=== PATIENT | male | born 1980 | race Caucasian/White ===

== ENCOUNTER 2018-04-12 20:36 | Emergency (ER) | payer BC ==
--- NOTE | 2018-04-12 20:58 | EDM.PDOC ---
ED HPI GENERAL MEDICAL PROBLEM - General Chief Complaint: Eye Problems Stated Complaint: PAIN LT EYE Time Seen by Provider: 04/12/18 20:48 Source of Information: Reports: Patient History Limitations: Reports: No Limitations - History of Present Illness INITIAL COMMENTS - FREE TEXT/NARRATIVE: HISTORY AND PHYSICAL: History of present illness: Patient is a 38-year-old male who presents to the emergency room with a 2 day history of eye irritation and yellow/green discharge. Patient reports that yesterday he noticed some eye irritation and had burn rubbing both eyes out of habit. This morning he woke up with his eyes matted shut. Has had yellow/green drainage since that time. He denies any visual changes, headache, light sensitivity. Does not wear glasses or contact lenses. Denies any fever, chills, chest pain or shortness of breath. Denies any GI or symptoms. Review of systems: As per history of present illness and below otherwise all systems reviewed and negative. Past medical history: As per history of present illness and as reviewed below otherwise noncontributory. Surgical history: As per history of present illness and as reviewed below otherwise noncontributory. Social history: No reported history of drug or alcohol abuse. Family history: As per history of present illness and as reviewed below otherwise noncontributory. Physical exam: General: Well-nourished 38-year-old male. Alert and oriented. Nontoxic appearing and in no acute distress. HEENT: Atraumatic, normocephalic, pupils equal and reactive bilaterally, negative for conjunctival pallor or scleral icterus, scleral injection bilaterally with pale yellow drainage to the inner corners of both eyes. mucous membranes moist, throat clear, neck supple, nontender, trachea midline. No drooling or trismus noted. No meningeal signs Lungs: Clear to auscultation, breath sounds equal bilaterally, chest nontender. Heart: S1S2, regular rate and rhythm without overt murmur Abdomen: Soft, nondistended, nontender. Negative for masses or hepatosplenomegaly. Negative for costovertebral tenderness. Pelvis: Stable nontender. Genitourinary: Deferred. Rectal: Deferred. Skin: Intact, warm, dry. No lesions or rashes noted. Extremities: Atraumatic, negative for cords or calf pain. Neurovascular unremarkable. Neuro: Awake, alert, oriented. Cranial nerves II through XII unremarkable. Cerebellum unremarkable. Motor and sensory unremarkable throughout. Exam nonfocal. Notes: 20/20 of the left, right and bilateral-visual acuity (normal). Does not wear contacts or glasses. Prescription for erythromycin ointment. We discussed follow -up with ophthalmology in the next couple days. He voices understanding and is agreeable to plan of care. Denies any further questions at this time. Diagnostics: [employer]: [] Impression: Conjunctivitis, bilateral Plan: 1. Please take the ointment to both eyes 4-5 times daily 7-10 days. One refill has been given 2 with your antibiotic prescription. Avoid placing the dropper into the eye as it can cause re-contamination. 2. Please follow-up with the nicker and breaker in the next 1-2 days. Return to the ED as needed and as discussed. Definitive disposition and diagnosis as appropriate pending reevaluation and review of above. Duration: Day(s): Location: Reports: Face Bilateral Eye Pain Score (Numeric/FACES): 7 - Related Data Allergies Allergy/AdvReac Type Severity Reaction Status Date / Time No Known Allergies Allergy Verified 04/12/18 20:46 Home Meds: Home Meds . [No Known Home Meds] 04/12/18 [History] Past Medical History - Past Health History Medical/Surgical History: Denies Medical/Surgical History ED ROS GENERAL - Review of Systems Review Of Systems: ROS reveals no pertinent complaints other than HPI. ED EXAM GENERAL W FULL EYE - Physical Exam Exam: See Below (See dictation) Course - Vital Signs Last Recorded V/S: Last Vital Signs Temp 98.7 F 04/12/18 20:48 Pulse 78 04/12/18 20:48 Resp 18 04/12/18 20:48 BP 155/73 H 04/12/18 20:48 Pulse Ox 98 04/12/18 20:48 Departure - Departure Time of Disposition: 20:58 Disposition: Home, Self-Care 01 Clinical Impression: Conjunctivitis Qualifiers: Conjunctivitis type: acute Acute conjunctivitis type: bacterial Laterality: bilateral Qualified Code(s): H10.33 - Unspecified acute conjunctivitis, bilateral - Discharge Information Referrals: PCP,None [Primary Care Provider] - Forms: ED Department Discharge Additional Instructions: The following information is given to patients seen in the emergency department who are being discharged to home. This information is to outline your options for follow-up care. We provide all patients seen in our emergency department with a follow-up referral. The need for follow-up, as well as the timing and circumstances, are variable depending upon the specifics of your emergency department visit. If you don't have a primary care physician on staff, we will provide you with a referral. We always advise you to contact your personal physician following an emergency department visit to inform them of the circumstance of the visit and for follow-up with them and/or the need for any referrals to a consulting specialist. The emergency department will also refer you to a specialist when appropriate. This referral assures that you have the opportunity for follow-up care with a specialist. All of these measure are taken in an effort to provide you with optimal care, which includes your follow-up. Under all circumstances we always encourage you to contact your private physician who remains a resource for coordinating your care. When calling for follow-up care, please make the office aware that this follow-up is from your recent emergency room visit. If for any reason you are refused follow-up, please contact the [facility] Emergency Department at and asked to speak to the emergency department charge nurse. [facility]: [facility] [address] [place] [address] 1. Please take the ointment to both eyes 4-5 times daily 7-10 days. One refill has been given 2 with your antibiotic prescription. Avoid placing the dropper into the eye as it can cause re-contamination. 2. Please follow-up with the nicker and breaker in the next 1-2 days. Return to the ED as needed and as discussed.
== END 2018-04-12 21:10 | disposition home or self-care (01) ==
LOC: MW.ED 20:36
DX: H10.33 Unspecified acute conjunctivitis, bilateral (principal)
CPT/HCPCS: 99282; 99283

== ENCOUNTER 2018-12-11 03:31 | Emergency (ER) | payer BC ==
[2018-12-11] MEDS ORDERED: HYDROmorphone 1 MG/ML Syringe IVPUSH ONE (03:46)
[2018-12-11] MEDS ORDERED: Sodium Chloride 0.9% 2.5 ML Syringe FLUSH PRN (03:46)
[2018-12-11] MEDS ORDERED: Ondansetron 4 MG/2 ML SDV IVPUSH ONE ×2 (03:46→06:41)
[2018-12-11] MEDS ORDERED: Sodium Chloride 0.9% 1,000 ML IV ONE ×2 (03:46→06:41)
[2018-12-11] MEDS ORDERED: Sodium Chloride 0.9% 10 ML Syringe FLUSH PRN (03:46)
--- NOTE | 2018-12-11 03:52 | EDM.PDOC ---
<Agnes Molina - Last Filed: 12/11/18 04:46> ED HPI GENERAL MEDICAL PROBLEM - General Chief Complaint: Abdominal Pain Stated Complaint: ABDOMINAL PAIN Time Seen by Provider: 12/11/18 03:37 - History of Present Illness INITIAL COMMENTS - FREE TEXT/NARRATIVE: HISTORY AND PHYSICAL: History of present illness: The patient is a 38-year-old male with no significant GI history and no abdominal surgical history who presents with sudden onset of suprapubic/lower abdominal pain at 9:30 PM last evening, 6 hours ago. The patient tells me he had a normal day yesterday without any systemic complaints of fever chills upper respiratory symptoms abdominal issues dysuria hematuria flank pain nausea vomiting or diarrhea. He said he ate a normal meal for dinner and had no anorexia. He said that at 9:30 he had sudden onset of sharp mid lower abdominal pain that did not localize right or left and does not radiate to his testicles or his legs. He's had no urinary complaints since that time and he did have a small bowel movement, which was not black or bloody ,after the pain started and the pain did not improve. He has no nausea or vomiting with the pain and no fevers and he did not take any medications specifically for this pain. The patient denies any recent trauma and says that when he urinates he doesn't have any issues with initiating the stream or passing his urine completely. He has no midline back pain and no specific flank pain. He doesn't feel short of breath with the pain. He says that the pain came on suddenly and has been constant since 9:30 at its onset. The patient says he has no history of food intolerance other than citrus foods causing some reflux symptoms and he does say that he eats a lot of [place] [employer] but not a lot of specific foods with seeds otherwise. Review of systems: As per history of present illness and below otherwise all systems reviewed and negative. Past medical history: As per history of present illness and as reviewed below otherwise noncontributory. Surgical history: As per history of present illness and as reviewed below otherwise noncontributory. Social history: No reported history of drug or alcohol abuse. Family history: As per history of present illness and as reviewed below otherwise noncontributory. Physical exam: General: Well-developed obese man who is nontoxic and moves easily in the ED. Vital signs are noted by me. HEENT: Atraumatic, normocephalic, negative for conjunctival pallor or scleral icterus, mucous membranes moist, throat clear, neck supple, nontender, trachea midline. There is no cervical adenopathy. Lungs: Clear to auscultation, breath sounds equal bilaterally, chest nontender. Heart: S1S2, regular rate and rhythm no overt murmurs Abdomen: Soft, nondistended, and hypoactive bowel sounds. There is some diffuse generalized abdominal tenderness but the pain is most localized to the suprapubic and left lower quadrant area which is moderate on deep palpation. There is no rebound or guarding. There is no specific tympany on percussion. Negative for masses or hepatosplenomegaly. Negative for costovertebral tenderness. Pelvis: Stable nontender. Genitourinary: Deferred. Rectal: Deferred. Extremities: Atraumatic, negative for cords or calf pain. Neurovascular unremarkable. Neuro: Awake, alert, oriented. Cranial nerves II through XII unremarkable. Cerebellum unremarkable. Motor and sensory unremarkable throughout. Exam nonfocal. Diagnostics: CBC CMP lipase lactic acid UA CT scan of the abdomen and pelvis Therapeutics: IV fluids Dilaudid Zofran 445a: case endorsed to Dr Monique to check CT and dispo the pt Impression: Lower abdominal pain Definitive disposition and diagnosis as appropriate pending reevaluation and review of above. lower abdomen Pain Score (Numeric/FACES): 4 - Related Data Allergies Allergy/AdvReac Type Severity Reaction Status Date / Time No Known Allergies Allergy Verified 12/11/18 03:35 Home Meds: Home Meds Ciprofloxacin HCl [Cipro] 500 mg PO BID #20 tablet 12/11/18 [Rx] metroNIDAZOLE [Flagyl] 500 mg PO Q8H #30 tab 12/11/18 [Rx] traMADol HCl [Tramadol HCl] 50 mg PO Q6H PRN #16 tablet 12/11/18 [Rx] Past Medical History - Past Health History Medical/Surgical History: Denies Medical/Surgical History Social & Family History - Caffeine Use Caffeine Use: Reports: None ED ROS GENERAL - Review of Systems Review Of Systems: ROS reveals no pertinent complaints other than HPI. ED EXAM, GENERAL - Physical Exam Exam: See Below (See dictation) Course - Vital Signs Last Recorded V/S: Last Vital Signs Temp 97.7 F 12/11/18 07:09 Pulse 79 12/11/18 09:30 Resp 16 12/11/18 09:30 BP 128/67 12/11/18 09:30 Pulse Ox 95 12/11/18 09:30 - Orders/Labs/Meds Orders: Active Orders 24 hr Category Date Time Status Abdomen Pelvis w Cont [CT] Stat Exams 12/11/18 03:46 Taken Saline Lock Insert [OM.PC] Stat Oth 12/11/18 03:45 Ordered Labs: Laboratory Tests 12/11/18 12/11/18 12/11/18 Range/Units 03:45 03:45 03:45 WBC 15.75 H (4.0-11.0) K/uL RBC 4.73 (4.50-5.90) M/uL Hgb 15.5 (13.0-17.0) g/dL Hct 43.7 (38.0-50.0) % MCV 92.4 (80.0-98.0) fL MCH 32.8 H (27.0-32.0) pg MCHC 35.5 (31.0-37.0) g/dL RDW Std Deviation 40.5 (28.0-62.0) fl RDW Coeff of Nayeli 12 (11.0-15.0) % Plt Count 267 (150-400) K/uL MPV 9.40 (7.40-12.00) fL Neut % (Auto) 74.5 (48.0-80.0) % Lymph % (Auto) 16.5 (16.0-40.0) % Mcintosh % (Auto) 7.4 (0.0-15.0) % Eos % (Auto) 1.5 (0.0-7.0) % Baso % (Auto) 0.1 (0.0-1.5) % Neut # (Auto) 11.7 H (1.4-5.7) K/uL Lymph # (Auto) 2.6 H (0.6-2.4) K/uL Mcintosh # (Auto) 1.2 H (0.0-0.8) K/uL Eos # (Auto) 0.2 (0.0-0.7) K/uL Baso # (Auto) 0.0 (0.0-0.1) K/uL Nucleated RBC % 0.0 /100WBC Nucleated RBCs # 0 K/uL Lactate 1.2 (0.20-2.00) mmol/L Sodium 138 (136-148) mmol/L Potassium 4.1 (3.5-5.1) mmol/L Chloride 104 (98-107) mmol/L Carbon Dioxide 24.5 (21.0-32.0) mmol/L BUN 18 (7.0-18.0) mg/dL Creatinine 0.9 (0.8-1.3) mg/dL Est Cr Clr Drug Dosing 116.03 mL/min Estimated GFR (MDRD) > 60.0 ml/min Glucose 106 (74-106) mg/dL Calcium 9.1 (8.5-10.1) mg/dL Total Bilirubin 1.1 H (0.2-1.0) mg/dL AST 39 H (15-37) IU/L ALT 91 H (14-63) IU/L Alkaline Phosphatase 62 (46-116) U/L Total Protein 7.7 (6.4-8.2) g/dL Albumin 3.6 (3.4-5.0) g/dL Globulin 4.1 H (2.6-4.0) g/dL Albumin/Globulin Ratio 0.9 (0.9-1.6) Lipase 142 (73-393) U/L Urine Color Urine Appearance Urine pH (5.0-8.0) Ur Specific [place] (1.001-1.035) Urine Protein (NEGATIVE) mg/dL Urine Glucose (UA) (NEGATIVE) mg/dL Urine Ketones (NEGATIVE) mg/dL Urine Occult Blood (NEGATIVE) Urine Nitrite (NEGATIVE) Urine Bilirubin (NEGATIVE) Urine Urobilinogen (<2.0) EU/dL Ur Leukocyte Esterase (NEGATIVE) Urine RBC (0-2/HPF) Urine WBC (0-5/HPF) Ur Epithelial Cells (NONE-FEW) Urine Bacteria (NEGATIVE) 12/11/18 Range/Units 03:53 WBC (4.0-11.0) K/uL RBC (4.50-5.90) M/uL Hgb (13.0-17.0) g/dL Hct (38.0-50.0) % MCV (80.0-98.0) fL MCH (27.0-32.0) pg MCHC (31.0-37.0) g/dL RDW Std Deviation (28.0-62.0) fl RDW Coeff of Nayeli (11.0-15.0) % Plt Count (150-400) K/uL MPV (7.40-12.00) fL Neut % (Auto) (48.0-80.0) % Lymph % (Auto) (16.0-40.0) % Mcintosh % (Auto) (0.0-15.0) % Eos % (Auto) (0.0-7.0) % Baso % (Auto) (0.0-1.5) % Neut # (Auto) (1.4-5.7) K/uL Lymph # (Auto) (0.6-2.4) K/uL Mcintosh # (Auto) (0.0-0.8) K/uL Eos # (Auto) (0.0-0.7) K/uL Baso # (Auto) (0.0-0.1) K/uL Nucleated RBC % /100WBC Nucleated RBCs # K/uL Lactate (0.20-2.00) mmol/L Sodium (136-148) mmol/L Potassium (3.5-5.1) mmol/L Chloride (98-107) mmol/L Carbon Dioxide (21.0-32.0) mmol/L BUN (7.0-18.0) mg/dL Creatinine (0.8-1.3) mg/dL Est Cr Clr Drug Dosing mL/min Estimated GFR (MDRD) ml/min Glucose (74-106) mg/dL Calcium (8.5-10.1) mg/dL Total Bilirubin (0.2-1.0) mg/dL AST (15-37) IU/L ALT (14-63) IU/L Alkaline Phosphatase (46-116) U/L Total Protein (6.4-8.2) g/dL Albumin (3.4-5.0) g/dL Globulin (2.6-4.0) g/dL Albumin/Globulin Ratio (0.9-1.6) Lipase (73-393) U/L Urine Color DARK YELLOW Urine Appearance CLEAR Urine pH 6.0 (5.0-8.0) Ur Specific [place] >= 1.030 (1.001-1.035) Urine Protein NEGATIVE (NEGATIVE) mg/dL Urine Glucose (UA) NEGATIVE (NEGATIVE) mg/dL Urine Ketones NEGATIVE (NEGATIVE) mg/dL Urine Occult Blood TRACE-INTACT H (NEGATIVE) Urine Nitrite NEGATIVE (NEGATIVE) Urine Bilirubin NEGATIVE (NEGATIVE) Urine Urobilinogen 0.2 (<2.0) EU/dL Ur Leukocyte Esterase NEGATIVE (NEGATIVE) Urine RBC 0-1 (0-2/HPF) Urine WBC 0-2 (0-5/HPF) Ur Epithelial Cells RARE (NONE-FEW) Urine Bacteria FEW (NEGATIVE) Meds: Medications Discontinued Medications Generic Name Dose Route Start Last Admin Trade Name Freq PRN Reason Stop Dose Admin Hydromorphone HCl 1 mg 12/11/18 03:46 12/11/18 04:00 Dilaudid IVPUSH 12/11/18 03:47 1 mg ONETIME ONE Administration Sodium Chloride 1,000 mls @ 999 mls/hr 12/11/18 03:46 12/11/18 03:59 Normal Saline IV 12/11/18 04:46 999 mls/hr STAT ONE Administration Ciprofloxacin/Dextrose 400 mg/ 200 mls @ 200 mls/hr 12/11/18 06:45 12/11/18 08:28 Premix IV 12/11/18 23:59 200 mls/hr Q12H LIDIA Administration Metronidazole 500 mg/ Premix 100 mls @ 100 mls/hr 12/11/18 06:41 12/11/18 07: 27 IV 12/11/18 07:40 100 mls/hr ONETIME ONE Administration Sodium Chloride 1,000 mls @ 999 mls/hr 12/11/18 06:41 12/11/18 07:07 Normal Saline IV 12/11/18 07:41 999 mls/hr .Bolus ONE Administration Iopamidol 100 ml 12/11/18 05:08 12/11/18 05:10 Isovue-370 (76%) IVPUSH 12/11/18 05:09 100 ml ONETIME ONE Administration Morphine Sulfate 4 mg 12/11/18 06:41 12/11/18 07:06 Morphine IVPUSH 12/11/18 06:42 4 mg ONETIME ONE Administration Ondansetron HCl 4 mg 12/11/18 03:46 12/11/18 04:00 Zofran IVPUSH 12/11/18 03:47 4 mg ONETIME ONE Administration Ondansetron HCl 4 mg 12/11/18 06:41 12/11/18 07:06 Zofran IVPUSH 12/11/18 06:42 4 mg ONETIME ONE Administration Sodium Chloride 10 ml 12/11/18 03:46 12/11/18 07:06 Saline Flush FLUSH 10 ml ASDIRECTED PRN Administration Keep Vein Open Sodium Chloride 2.5 ml 12/11/18 03:46 12/11/18 07:06 Saline Flush FLUSH 2.5 ml ASDIRECTED PRN Administration Keep Vein Open Departure - Departure Disposition: Home, Self-Care 01 Clinical Impression: Diverticulitis of sigmoid colon - Discharge Information Prescriptions: Ciprofloxacin HCl [Cipro] 500 mg PO BID #20 tablet metroNIDAZOLE [Flagyl] 500 mg PO Q8H #30 tab traMADol HCl [Tramadol HCl] 50 mg PO Q6H PRN #16 tablet PRN Reason: Pain Instructions: Diverticulitis, [id number] Referrals: PCP,None [Primary Care Provider] - Forms: ED Department Discharge Additional Instructions: The following information is given to patients seen in the emergency department who are being discharged to home. This information is to outline your options for follow-up care. We provide all patients seen in our emergency department with a follow-up referral. The need for follow-up, as well as the timing and circumstances, are variable depending upon the specifics of your emergency department visit. If you don't have a primary care physician on staff, we will provide you with a referral. We always advise you to contact your personal physician following an emergency department visit to inform them of the circumstance of the visit and for follow-up with them and/or the need for any referrals to a consulting specialist. The emergency department will also refer you to a specialist when appropriate. This referral assures that you have the opportunity for follow-up care with a specialist. All of these measure are taken in an effort to provide you with optimal care, which includes your follow-up. Under all circumstances we always encourage you to contact your private physician who remains a resource for coordinating your care. When calling for follow-up care, please make the office aware that this follow-up is from your recent emergency room visit. If for any reason you are refused follow-up, please contact the [facility] Emergency Department at and asked to speak to the emergency department charge nurse. Dr. Parker next available appointment, take meds as directed and until gone. Return to ER if any symptoms worsen or change [facility] Specialty Care - General Surgery Professional Building [address] [place] [address], [address] [place] [address] <Eleanor Monique - Last Filed: 12/11/18 13:45> ED HPI GENERAL MEDICAL PROBLEM - History of Present Illness INITIAL COMMENTS - FREE TEXT/NARRATIVE: Patient was signed out to me by Dr. Molina from the shift supervisor film processing check CT scan results. CT showed sigmoid diverticulitis without abscess or perforation and Dr. PARKER was consulted. Patient was given Cipro and Flagyl IV here in the ED and sent out with antibiotics and instructions to follow-up with this week Departure - Departure Time of Disposition: 09:45 Condition: Good - Discharge Information *PRESCRIPTION DRUG MONITORING PROGRAM REVIEWED*: No *COPY OF PRESCRIPTION DRUG MONITORING REPORT IN PATIENT HEMALATHA: No
[2018-12-11 04:22] LABS: CHLORIDE,CL 104 mmol/L (98-107); SODIUM,NA 138 mmol/L (136-148)
[2018-12-11] MEDS ORDERED: Iopamidol 755 Mg/ML 100 ML Bottle IVPUSH ONE (05:08)
[2018-12-11] MEDS ORDERED: Morphine 4 MG/ML Syringe IVPUSH ONE (06:41)
[2018-12-11] MEDS ORDERED: metroNIDAZOLE/Normal Saline 500 MG in Premix Bag 1 BAG IV ONE (06:41)
[2018-12-11] MEDS ORDERED: Ciprofloxacin in D5W 400 MG in Premix Bag 1 BAG IV SCH ×2 (06:45)
--- NOTE | 2018-12-11 20:46 | CT ---
EXAM DATE: 12/11/18 PATIENT'S AGE: 38 Patient: MELISSA ETIENNE Facility: [place], [place] Site . Site : [id number] Study: CT Abdomen/Pelvis -12/11/2018 5:29:27 AM Ordering Physician: Tracy Alarcon Final Report: INDICATION: Abdominal pain. TECHNIQUE: CT abdomen and pelvis acquired with 100 cc Isovue 370 IV contrast. COMPARISON: None. FINDINGS: Lower chest: Unremarkable. Liver: Unremarkable. Normal in size and attenuation. No masses. Gallbladder and bile ducts: Unremarkable. No stones or inflammation. No biliary dilatation. Pancreas: Unremarkable. No mass or inflammation. Spleen: Unremarkable. Normal in size. No masses. Adrenal glands: Unremarkable. No nodules. Kidneys: There is a single small nonobstructive stone in the right kidney. Few small bilateral renal cysts present. No hydronephrosis. GI tract: There is acute inflammation of a diverticulum in the proximal sigmoid colon. No sign of lester perforation or abscess. Remainder of the GI tract and appendix are normal. Vasculature: Unremarkable. Lymph nodes: No lymphadenopathy. Omentum/Peritoneum/Abdominal Wall: Unremarkable. No sign of mass or infiltration. No free air or significant free fluid. Pelvis: Unremarkable. Bones: Moderate degenerative disc spondylosis is present at L5-S1. Otherwise unremarkable. IMPRESSION: Acute sigmoid diverticulitis without complication. Please note that all CT scans at this facility use dose modulation, iterative reconstruction, and/or weight-based dosing when appropriate to reduce radiation dose to as low as reasonably achievable. Dictated by Isaac Naik MD @ Dec 11 2018 6:17AM (Electronic Signature) Report Signed by Proxy. [facility]
== END 2018-12-11 09:43 | disposition home or self-care (01) ==
LOC: MW.ED 03:31
DX: K57.32 Diverticulitis of large intestine without perforation or abscess without bleeding (principal); Z79.899 Other long term (current) drug therapy
CPT/HCPCS: 36415; 74177; 80053; 81001; 83605; 83690; 85025; 96361; 96365; 96367; 96375; 96376; 99284; J0744; J1170; J2270; J2405; J3490; J7040; Q9967; 99283

== ENCOUNTER 2019-03-11 09:06 | Inpatient (IN) | payer BC ==
[2019-03-11] MEDS ORDERED: Ondansetron 4 MG/2 ML SDV IVPUSH ONE (09:09)
[2019-03-11] MEDS ORDERED: Sodium Chloride 0.9% 1,000 ML IV ONE (09:09)
[2019-03-11] MEDS ORDERED: Ketorolac 30 MG/ML SDV IVPUSH ONE (09:09)
[2019-03-11 10:17] LABS: CHLORIDE,CL 102 mmol/L (98-107); SODIUM,NA 138 mmol/L (136-148)
[2019-03-11] MEDS ORDERED: Iopamidol 755 MG/ML 500 ML Multipack Bottle IVPUSH STA (10:47)
--- NOTE | 2019-03-11 11:19 | CT ---
INDICATION: Lower abdominal pain. Previous diverticulitis. TECHNIQUE: CT of the abdomen pelvis performed after IV injection of 100 mL of Isovue-370. FINDINGS: Small sclerotic lesion right femoral head likely a bone island. Small hiatal hernia. Moderate diffuse fatty infiltration of the liver. Mildly prominent lymph node measuring 1 cm posterior distal esophagus on image 10. Small cyst in the left lower kidney. Small stone in right kidney. Small low-density lesions in right kidney likely cysts. Two small rounded areas of low density in right kidney with surrounding mild peripheral enhancement about them in the right kidney are nonspecific. Small lymph nodes within the abdomen and pelvis, a few of which in the portocaval and lucille hepatis regions are mildly prominent. Moderate wall thickening involving a 7-8 cm segment of the proximal sigmoid colon. Underlying diverticulosis involving the colon. Moderate diffuse inflammatory soft tissue stranding in the left lower abdomen and left pelvis extending about the affected segment of colon with small amounts of fluid diffusely in the left lower quadrant and left pelvis. One small fluid collection posterior to the sigmoid colon on image 108 measuring 1.6 cm should be a small abscess cavity. This fluid collection contains a small air bubble. No free intraperitoneal air in the and the upper abdomen. The appendix is normal. Remainder negative. IMPRESSION: 1. Modic changes of acute diverticulitis involving the proximal sigmoid colon with a small 1.6 cm abscess cavity in the left pelvis posterior to the sigmoid colon. This small abscess cavity is far too small to drain percutaneously. 2. Small hiatal hernia with 1 cm mildly prominent lymph node posterior to the distal esophagus. 3. Small stone right kidney. Other findings as above Please note that all CT scans at this facility use dose modulation, iterative reconstruction, and/or weight-based dosing when appropriate to reduce radiation dose to as low as reasonably achievable. Dictated by Ernesto Hoffman MD @ Mar 11 2019 11:15AM Signed by Dr. Ernesto Hoffman @ Mar 11 2019 11:17AM
[2019-03-11] MEDS ORDERED: metroNIDAZOLE/Normal Saline 500 MG in Premix Bag 1 BAG IV ONE (11:46)
[2019-03-11] MEDS ORDERED: Piperacillin/Tazobactam 3.375 GM in Sodium Chloride 0.9% 50 ML IV ONE (11:46)
--- NOTE | 2019-03-11 11:50 | EDM.PDOC ---
ED HPI GENERAL MEDICAL PROBLEM - General Chief Complaint: Abdominal Pain Stated Complaint: PAIN IN THE BOTTOM OF STOMACH ON LT SIDE Time Seen by Provider: 03/11/19 11:48 Source of Information: Reports: Patient - History of Present Illness INITIAL COMMENTS - FREE TEXT/NARRATIVE: HISTORY AND PHYSICAL: History of present illness: []Patient presents with history of diverticulitis and 8 out of 10 left lower quadrant pain no fever nausea vomiting diarrhea constipation chest pain shortness breath headache dizziness palpitation no bowel or urine symptoms Review of systems: As per history of present illness and below otherwise all systems reviewed and negative. Past medical history: As per history of present illness and as reviewed below otherwise noncontributory. Surgical history: As per history of present illness and as reviewed below otherwise noncontributory. Social history: No reported history of drug or alcohol abuse. Family history: As per history of present illness and as reviewed below otherwise noncontributory. Physical exam: HEENT: Atraumatic, normocephalic, pupils reactive, negative for conjunctival pallor or scleral icterus, mucous membranes moist, throat clear, neck supple, nontender, trachea midline. Lungs: Clear to auscultation, breath sounds equal bilaterally, chest nontender. Heart: S1S2, regular, negative for clicks, rubs, or JVD. Abdomen: Soft, nondistended, nontender. Negative for masses or hepatosplenomegaly. Negative for costovertebral tenderness. Pelvis: Stable nontender. Genitourinary: Deferred. Rectal: Deferred. Extremities: Atraumatic, negative for cords or calf pain. Neurovascular unremarkable. Neuro: Awake, alert, oriented. Cranial nerves II through XII unremarkable. Cerebellum unremarkable. Motor and sensory unremarkable throughout. Exam nonfocal. Diagnostics: [TBC CMP troponin lipase CT abdomen pelvis with ] Therapeutics: [ Dr. Coffman's excepting admission requests Zosyn and Flagyl IV Dr. Hopper is consult concerning abscess he'll see the patient on the floor in consult ] Impression: [] diverticulitis with 1.6 cm abscess associated no appreciable intra-abdominal air Definitive disposition and diagnosis as appropriate pending reevaluation and review of above. lower abd Pain Score (Numeric/FACES): 5 - Related Data Allergies Allergy/AdvReac Type Severity Reaction Status Date / Time No Known Allergies Allergy Verified 03/11/19 09:13 Home Meds: Home Meds . [No Known Home Meds] 03/11/19 [History] Past Medical History - Past Health History Medical/Surgical History: Denies Medical/Surgical History Gastrointestinal History: Reports: Diverticulosis - Infectious Disease History Infectious Disease History: Reports: None Social & Family History - Family History Family Medical History: Noncontributory - Tobacco Use Smoking Status *Q: Never Smoker - Caffeine Use Caffeine Use: Reports: None - Recreational Drug Use Recreational Drug Use: No ED ROS GENERAL - Review of Systems Review Of Systems: See Below ED EXAM, GENERAL - Physical Exam Exam: See Below Course - Vital Signs Last Recorded V/S: Last Vital Signs Temp 96.1 F 03/11/19 09:14 Pulse 112 H 03/11/19 09:14 Resp 18 03/11/19 09:14 BP 145/105 H 03/11/19 09:14 Pulse Ox 98 03/11/19 09:14 - Orders/Labs/Meds Orders: Active Orders 24 hr Category Date Time Status CULTURE URINE [RM] Stat Lab 03/11/19 11:23 Received Piperacillin/Tazobactam [Piperacil-Tazobact] 3.375 gm Med 03/11/19 11:46 Ordered Sodium Chloride 0.9% [Normal Saline] 50 ml IV ONETIME Sodium Chloride 0.9% [Normal Saline] 1,000 ml Med 03/11/19 12:00 Ordered IV STAT metroNIDAZOLE/Normal Saline [Flagyl 500 MG in NS 100 ML Med 03/11/19 11:46 Ordered ] 500 mg Premix Bag 1 bag IV ONETIME Medication Orders Metronidazole 500 mg/ Premix 100 mls @ 100 mls/hr IV ONETIME ONE Stop: 03/11/19 12:45 Piperacillin Sod/Tazobactam (Sod 3.375 gm/ Sodium Chloride) 50 mls @ 100 mls/ hr IV ONETIME ONE Stop: 03/11/19 12:15 Sodium Chloride (Normal Saline) 1,000 mls @ 125 mls/hr IV STAT LIDIA Labs: Laboratory Tests 03/11/19 03/11/19 03/11/19 Range/Units 09:20 09:20 11:23 WBC 16.52 H (4.0-11.0) K/uL RBC 5.10 (4.50-5.90) M/uL Hgb 16.8 (13.0-17.0) g/dL Hct 47.0 (38.0-50.0) % MCV 92.2 (80.0-98.0) fL MCH 32.9 H (27.0-32.0) pg MCHC 35.7 (31.0-37.0) g/dL RDW Std Deviation 40.2 (28.0-62.0) fl RDW Coeff of Nayeli 12 (11.0-15.0) % Plt Count 298 (150-400) K/uL MPV 9.50 (7.40-12.00) fL Neut % (Auto) 64.4 (48.0-80.0) % Lymph % (Auto) 23.5 (16.0-40.0) % [place] % (Auto) 9.7 (0.0-15.0) % Eos % (Auto) 2.2 (0.0-7.0) % Baso % (Auto) 0.2 (0.0-1.5) % Neut # (Auto) 10.7 H (1.4-5.7) K/uL Lymph # (Auto) 3.9 H (0.6-2.4) K/uL [place] # (Auto) 1.6 H (0.0-0.8) K/uL Eos # (Auto) 0.4 (0.0-0.7) K/uL Baso # (Auto) 0.0 (0.0-0.1) K/uL Nucleated RBC % 0.0 /100WBC Nucleated RBCs # 0 K/uL Sodium 138 (136-148) mmol/L Potassium 4.0 (3.5-5.1) mmol/L Chloride 102 (98-107) mmol/L Carbon Dioxide 23.7 (21.0-32.0) mmol/L BUN 16 (7.0-18.0) mg/dL Creatinine 1.0 (0.8-1.3) mg/dL Est Cr Clr Drug Dosing 104.43 mL/min Estimated GFR (MDRD) > 60.0 ml/min Glucose 115 H (74-106) mg/dL Calcium 9.1 (8.5-10.1) mg/dL Total Bilirubin 2.5 H (0.2-1.0) mg/dL AST 20 (15-37) IU/L ALT 52 (14-63) IU/L Alkaline Phosphatase 49 (46-116) U/L Troponin I < 0.050 (0.000-0.056) ng/mL Total Protein 8.0 (6.4-8.2) g/dL Albumin 3.5 (3.4-5.0) g/dL Globulin 4.5 H (2.6-4.0) g/dL Albumin/Globulin Ratio 0.8 L (0.9-1.6) Lipase 199 (73-393) U/L Urine Color DARK YELLOW Urine Appearance CLEAR Urine pH 6.5 (5.0-8.0) Ur Specific [place] 1.010 (1.001-1.035) Urine Protein 30 H (NEGATIVE) mg/dL Urine Glucose (UA) NEGATIVE (NEGATIVE) mg/dL Urine Ketones NEGATIVE (NEGATIVE) mg/dL Urine Occult Blood TRACE-INTACT H (NEGATIVE) Urine Nitrite POSITIVE H (NEGATIVE) Urine Bilirubin SMALL H (NEGATIVE) Urine Ictotest NEGATIVE Urine Urobilinogen 1.0 (<2.0) EU/dL Ur Leukocyte Esterase NEGATIVE (NEGATIVE) Urine RBC 0-2 (0-2/HPF) Urine WBC 0-1 (0-5/HPF) Ur Epithelial Cells OCCASIONAL (NONE-FEW) Urine Bacteria FEW (NEGATIVE) Urine Mucus MODERATE (NONE-MOD) Meds: Medications Generic Name Dose Route Start Last Admin Trade Name Freq PRN Reason Stop Dose Admin Metronidazole 500 mg/ Premix 100 mls @ 100 mls/hr 03/11/19 11:46 IV 03/11/19 12:45 ONETIME ONE Piperacillin Sod/Tazobactam 50 mls @ 100 mls/hr 03/11/19 11:46 Sod 3.375 gm/ Sodium Chloride IV 03/11/19 12:15 ONETIME ONE Sodium Chloride 1,000 mls @ 125 mls/hr 03/11/19 12:00 Normal Saline IV STAT LIDIA Discontinued Medications Generic Name Dose Route Start Last Admin Trade Name Freq PRN Reason Stop Dose Admin Sodium Chloride 1,000 mls @ 999 mls/hr 03/11/19 09:09 03/11/19 09:21 Normal Saline IV 03/11/19 10:09 999 mls/hr STAT ONE Administration Iopamidol 100 ml 03/11/19 10:47 03/11/19 10:53 Isovue Multipack-370 (76%) IVPUSH 03/11/19 10:48 100 ml ONETIME STA Administration Ketorolac Tromethamine 30 mg 03/11/19 09:09 03/11/19 09:26 Toradol IVPUSH 03/11/19 09:10 30 mg ONETIME ONE Administration Ondansetron HCl 8 mg 03/11/19 09:09 03/11/19 09:26 Zofran IVPUSH 03/11/19 09:10 8 mg ONETIME ONE Administration Departure - Departure Time of Disposition: 11:49 Disposition: Admitted As Inpatient 67 Condition: Fair Clinical Impression: Diverticulitis - Discharge Information Referrals: PCP,Unknown [Primary Care Provider] - - My Orders Last 24 Hours: My Active Orders 03/11/19 11:23 CULTURE URINE [RM] Stat 03/11/19 11:46 Piperacillin/Tazobactam [Piperacil-Tazobact] 3.375 gm Sodium Chloride 0.9% [ Normal Saline] 50 ml IV ONETIME metroNIDAZOLE/Normal Saline [Flagyl 500 MG in NS 100 ML] 500 mg Premix Bag 1 bag IV ONETIME 03/11/19 12:00 Sodium Chloride 0.9% [Normal Saline] 1,000 ml IV STAT - Assessment/Plan Last 24 Hours: My Active Orders 03/11/19 11:23 CULTURE URINE [RM] Stat 03/11/19 11:46 Piperacillin/Tazobactam [Piperacil-Tazobact] 3.375 gm Sodium Chloride 0.9% [ Normal Saline] 50 ml IV ONETIME metroNIDAZOLE/Normal Saline [Flagyl 500 MG in NS 100 ML] 500 mg Premix Bag 1 bag IV ONETIME 03/11/19 12:00 Sodium Chloride 0.9% [Normal Saline] 1,000 ml IV STAT
[2019-03-11] MEDS ORDERED: Sodium Chloride 0.9% 1,000 ML IV SCH (12:00)
[2019-03-11] MEDS ORDERED: Ketorolac 30 MG/ML SDV IV PRN (12:10)
[2019-03-11] MEDS ORDERED: Morphine 10 MG/ML Syringe IVPUSH PRN (12:10)
[2019-03-11] MEDS ORDERED: Ondansetron 4 MG/2 ML SDV IVPUSH PRN (12:10)
[2019-03-11] MEDS ORDERED: Piperacillin/Tazobactam 4.5 GM in Sodium Chloride 0.9% 100 ML IV SCH (12:15)
--- NOTE | 2019-03-11 12:23 | PCM.HP ---
H&P History of Present Illness - General Date of Service: 03/11/19 Admit Problem/Dx: Admission Diagnosis/Problem Admission Diagnosis/Problem Diverticulitis Source of Information: Patient History Limitations: Reports: No Limitations - History of Present Illness Initial Comments - Free Text/Narative: The patient is an otherwise healthy 38-year-old gentleman who is presented to the emergency department with the chief complaint of left lower quadrant abdominal pain. The pain is fairly localized left lower quadrant and does not radiate. The patient was also here in December with similar symptoms the thought to be diverticulitis. The patient says that the pain started up 2-3 days ago and has gotten progressively worse. The pain is lessened when lying down and worse when moving around. He has had some nausea without vomiting associated with this. The patient denies any fever or chills. He has not been taking any medications chronically. The patient also has denied any diarrhea or constipation. Onset of Symptoms: Reports: Gradual Duration of Symptoms: Reports: Day(s): Location: Reports: Abdomen Quality: Reports: Ache, Stabbing Severity: Moderate Improves with: Reports: Rest Worsens with: Reports: Eating, Movement Associated Symptoms: Reports: Nausea/Vomiting lower abd Pain Score (Numeric/FACES): 5 - Related Data Allergies/Adverse Reactions: Allergies Allergy/AdvReac Type Severity Reaction Status Date / Time No Known Allergies Allergy Verified 03/11/19 09:13 Home Medications: Home Meds . [No Known Home Meds] 03/11/19 [History] Past Medical History - Past Health History Medical/Surgical History: Denies Medical/Surgical History HEENT History: Reports: None Cardiovascular History: Reports: None Respiratory History: Reports: None Gastrointestinal History: Reports: Diverticulosis Genitourinary History: Reports: None Musculoskeletal History: Reports: None Neurological History: Reports: None Psychiatric History: Reports: None Endocrine/Metabolic History: Reports: None Hematologic History: Reports: None Immunologic History: Reports: None Oncologic (Cancer) History: Reports: None Dermatologic History: Reports: None - Infectious Disease History Infectious Disease History: Reports: None Social & Family History - Family History Family Medical History: Noncontributory - Tobacco Use Smoking Status *Q: Never Smoker - Caffeine Use Caffeine Use: Reports: None - Recreational Drug Use Recreational Drug Use: No - Living Situation & Occupation Living situation: Reports: Single Occupation: Employed H&P Review of Systems - Review of Systems: Review Of Systems: See Below General: Reports: Chills HEENT: Reports: No Symptoms Pulmonary: Reports: No Symptoms Cardiovascular: Reports: No Symptoms Gastrointestinal: Reports: Abdominal Pain, Nausea, Vomiting Genitourinary: Reports: No Symptoms Musculoskeletal: Reports: No Symptoms Skin: Reports: No Symptoms Psychiatric: Reports: No Symptoms Neurological: Reports: No Symptoms Hematologic/Lymphatic: Reports: No Symptoms Immunologic: Reports: No Symptoms Exam - Exam Exam: See Below - Vital Signs Vital Signs: Last Vital Signs Temp 35.6 C 03/11/19 09:14 Pulse 112 H 03/11/19 09:14 Resp 18 03/11/19 09:14 BP 145/105 H 03/11/19 09:14 Pulse Ox 98 03/11/19 09:14 Weight: 124.738 kg - Exam Quality Assessment: No: Supplemental Oxygen General: Alert, Oriented, Cooperative, Mild Distress HEENT: Conjunctiva Clear, EACs Clear, EOMI, Mucosa Moist & Skelp, Other (Anterior , lower gingival lesions) Neck: Supple, Trachea Midline Lungs: Clear to Auscultation, Normal Respiratory Effort Cardiovascular: Regular Rate, Regular Rhythm GI/Abdominal Exam: Normal Bowel Sounds, No Distention, Tender (Left lower quadrant), Other (Obese). No: Guarding, Rigid, Rebound (Male) Exam: Deferred Rectal (Males) Exam: Deferred Back Exam: Normal Inspection, Full Range of Motion Extremities: Normal Inspection, No Pedal Edema Skin: Warm, Dry, Intact Neurological: Cranial Nerves Intact, Reflexes Equal Bilateral Neuro Extensive - Mental Status: Alert, Oriented x3 Psychiatric: Alert, Normal Affect, Normal Mood - Patient Data Lab Results Last 24 hrs: Laboratory Results - last 24 hr 03/11/19 03/11/19 03/11/19 Range/Units 09:20 09:20 11:23 WBC 16.52 H (4.0-11.0) K/uL RBC 5.10 (4.50-5.90) M/uL Hgb 16.8 (13.0-17.0) g/dL Hct 47.0 (38.0-50.0) % MCV 92.2 (80.0-98.0) fL MCH 32.9 H (27.0-32.0) pg MCHC 35.7 (31.0-37.0) g/dL RDW Std Deviation 40.2 (28.0-62.0) fl RDW Coeff of Nayeli 12 (11.0-15.0) % Plt Count 298 (150-400) K/uL MPV 9.50 (7.40-12.00) fL Neut % (Auto) 64.4 (48.0-80.0) % Lymph % (Auto) 23.5 (16.0-40.0) % [place] % (Auto) 9.7 (0.0-15.0) % Eos % (Auto) 2.2 (0.0-7.0) % Baso % (Auto) 0.2 (0.0-1.5) % Neut # (Auto) 10.7 H (1.4-5.7) K/uL Lymph # (Auto) 3.9 H (0.6-2.4) K/uL [place] # (Auto) 1.6 H (0.0-0.8) K/uL Eos # (Auto) 0.4 (0.0-0.7) K/uL Baso # (Auto) 0.0 (0.0-0.1) K/uL Nucleated RBC % 0.0 /100WBC Nucleated RBCs # 0 K/uL Sodium 138 (136-148) mmol/L Potassium 4.0 (3.5-5.1) mmol/L Chloride 102 (98-107) mmol/L Carbon Dioxide 23.7 (21.0-32.0) mmol/L BUN 16 (7.0-18.0) mg/dL Creatinine 1.0 (0.8-1.3) mg/dL Est Cr Clr Drug Dosing 104.43 mL/min Estimated GFR (MDRD) > 60.0 ml/min Glucose 115 H (74-106) mg/dL Calcium 9.1 (8.5-10.1) mg/dL Total Bilirubin 2.5 H (0.2-1.0) mg/dL AST 20 (15-37) IU/L ALT 52 (14-63) IU/L Alkaline Phosphatase 49 (46-116) U/L Troponin I < 0.050 (0.000-0.056) ng/mL Total Protein 8.0 (6.4-8.2) g/dL Albumin 3.5 (3.4-5.0) g/dL Globulin 4.5 H (2.6-4.0) g/dL Albumin/Globulin Ratio 0.8 L (0.9-1.6) Lipase 199 (73-393) U/L Urine Color DARK YELLOW Urine Appearance CLEAR Urine pH 6.5 (5.0-8.0) Ur Specific [place] 1.010 (1.001-1.035) Urine Protein 30 H (NEGATIVE) mg/dL Urine Glucose (UA) NEGATIVE (NEGATIVE) mg/dL Urine Ketones NEGATIVE (NEGATIVE) mg/dL Urine Occult Blood TRACE-INTACT H (NEGATIVE) Urine Nitrite POSITIVE H (NEGATIVE) Urine Bilirubin SMALL H (NEGATIVE) Urine Ictotest NEGATIVE Urine Urobilinogen 1.0 (<2.0) EU/dL Ur Leukocyte Esterase NEGATIVE (NEGATIVE) Urine RBC 0-2 (0-2/HPF) Urine WBC 0-1 (0-5/HPF) Ur Epithelial Cells OCCASIONAL (NONE-FEW) Urine Bacteria FEW (NEGATIVE) Urine Mucus MODERATE (NONE-MOD) Result Diagrams: 03/11/19 09:20 03/11/19 09:20 - Problem List (1) Diverticulitis of sigmoid colon SNOMED Code(s): 605077303 ICD Code: K57.32 - DVTRCLI OF LG INT W/O PERFORATION OR ABSCESS W/O BLEEDING Status: Acute Priority: High Current Visit: Yes (2) Lesion of gingiva SNOMED Code(s): 553178754 ICD Code: K06.8 - OTH DISRD OF GINGIVA AND EDENTULOUS ALVEOLAR RIDGE Status : Chronic Priority: Medium Current Visit: Yes (3) Smokeless tobacco use SNOMED Code(s): 159736426 ICD Code: Z72.0 - TOBACCO USE Status: Chronic Priority: Medium Current Visit: Yes (4) Obesity (BMI 30-39.9) SNOMED Code(s): 888438120, 971516026 ICD Code: E66.9 - OBESITY, UNSPECIFIED Status: Chronic Priority: Medium Current Visit: Yes Problem List Initiated/Reviewed/Updated: Yes Orders Last 24hrs: Active Orders 24 hr Category Date Time Status Admission Status [Patient Status] [ADT] Stat ADT 03/11/19 11:50 Active Notify Provider Consults [RC] ASDIRECTED Care 03/11/19 12:12 Active Oxygen Therapy [RC] PRN Care 03/11/19 12:10 Active Up ad Mehnaz [RC] ASDIRECTED Care 03/11/19 12:10 Active VTE/DVT Education [RC] PER UNIT ROUTINE Care 03/11/19 12:10 Active Vital Signs [RC] Q4H Care 03/11/19 12:10 Active Consult to Physician [CONS] Routine Cons 03/11/19 12:10 Active Nothing per Oral Now Diet [DIET] Diet 03/11/19 Breakfast Active CBC WITH AUTO DIFF [HEME] AM Lab 03/12/19 05:11 Ordered COMPREHENSIVE METABOLIC PN,CMP [CHEM] AM Lab 03/12/19 05:11 Ordered CULTURE URINE [RM] Stat Lab 03/11/19 11:23 Received Heparin Sodium Med 03/11/19 12:15 Active 5,000 units SUBCUT Q8H Ketorolac [Toradol] Med 03/11/19 12:10 Active 30 mg IV Q6H PRN Morphine Med 03/11/19 12:10 Active 2 mg IVPUSH Q2H PRN Nicotine [Habitrol] Med 03/11/19 12:15 Active 14 mg TRDERM DAILY Ondansetron [Zofran] Med 03/11/19 12:10 Active 4 mg IVPUSH Q6H PRN Piperacillin/Tazobactam [Piperacil-Tazobact] 4.5 gm Med 03/11/19 12:15 Active Sodium Chloride 0.9% [Normal Saline] 100 ml IV Q8H Sodium Chloride 0.9% [Normal Saline] 1,000 ml Med 03/11/19 12:15 Active IV ASDIRECTED Sodium Chloride 0.9% [Normal Saline] 1,000 ml Med 03/11/19 12:00 Active IV STAT metroNIDAZOLE/Normal Saline [Flagyl 500 MG in NS 100 ML Med 03/11/19 11:46 Active ] 500 mg Premix Bag 1 bag IV ONETIME metroNIDAZOLE/Normal Saline [Flagyl 500 MG in NS 100 ML Med 03/11/19 18:00 Active ] 500 mg Premix Bag 1 bag IV QID Resuscitation Status Routine Resus Stat 03/11/19 12:10 Ordered Medication Orders Heparin Sodium (Porcine) (Heparin Sodium) 5,000 units SUBCUT Q8H LIDIA Metronidazole 500 mg/ Premix 100 mls @ 100 mls/hr IV ONETIME ONE Stop: 03/11/19 12:45 Sodium Chloride (Normal Saline) 1,000 mls @ 125 mls/hr IV STAT LIDIA Last Admin: 03/11/19 12:01 Dose: 125 mls/hr Metronidazole 500 mg/ Premix 100 mls @ 100 mls/hr IV QID LIDIA Piperacillin Sod/Tazobactam (Sod 4.5 gm/ Sodium Chloride) 100 mls @ 100 mls/hr IV Q8H LIDIA Sodium Chloride (Normal Saline) 1,000 mls @ 125 mls/hr IV ASDIRECTED [facility] Ketorolac Tromethamine (Toradol) 30 mg IV Q6H PRN PRN Reason: Pain (moderate 4-6) Morphine Sulfate (Morphine) 2 mg IVPUSH Q2H PRN PRN Reason: Pain (severe 7-10) Stop: 03/12/19 12:11 Nicotine (Habitrol) 14 mg TRDERM DAILY [facility] Ondansetron HCl (Zofran) 4 mg IVPUSH Q6H PRN PRN Reason: Nausea/Vomiting Assessment/Plan Comment:: The patient is a 38-year-old gentleman who on CT scan has evidence of diverticulitis in the sigmoid colon area. The abscess is at 1.6 cm. No evidence of perforation or free abdominal air. The patient will be admitted to observation secondary to diverticulitis. I placed the patient on IV antibiotics consisting of Zosyn and Flagyl. Surgery is also been consulted. The patient will also be anticoagulated with Lovenox for DVT prophylaxis. The patient will be kept nothing by mouth for now. I have also ordered IV normal saline at 125 mL per hour. The patient does have a dental appointment with regards to his gingival lesions. With the patient's smokeless tobacco usage these are somewhat concerning for malignancy. The patient also has been strongly counseled with regards to the use of smokeless tobacco. I've offered the patient a nicotine patch. The patient should also follow-up with his primary care physician with regards to his morbid obesity. I have ordered repeat laboratory testing secondary to the patient's leukocytosis. The patient should be appropriate for discharge in 1-2 days depending on pain, leukocytosis and surgical assessment.
[2019-03-11] MEDS: Nicotine 14 MG/24 Hr Patch TRDERM SCH (13:24)
[2019-03-11] MEDS: Heparin Sodium 5,000 Units/ML Vial SUBCUT SCH ×2 (13:24→19:54)
[2019-03-11] MEDS: metroNIDAZOLE/Normal Saline 500 MG in Premix Bag 1 BAG IV SCH (17:53)
--- NOTE | 2019-03-11 18:19 | PCM.SN ---
- Free Text/Narrative Note: pt seen, chart reviewed; recurrent diverticulitis, this time w micro perforation and abscess collection; pain is 4 out of 10; pt would benefit from npo/ivf/iv abx; if dced, would be on po abx flagyl and levaquin for a total of at least 3 wk abx treatment; if not respond to conservative measure, would need emergent surgery, would be a [place] procedure, likely transfer to outside facility/tertiary care center for BMI of 40 w chewing tobacco; pt voiced understanding; will follow pt with you; [id number]
[2019-03-11] MEDS: Piperacillin/Tazobactam 4.5 GM in Sodium Chloride 0.9% 100 ML IV SCH (19:53)
--- NOTE | 2019-03-11 22:59 | CONS ---
DATE OF CONSULTATION: 03/11/2019 DATE OF : 1980 PRIMARY CARE PHYSICIAN: Unknown PCP Consult was called, the patient was seen shortly after. CONCERNING QUESTION: Diverticulitis with abdominal abscess. HISTORY OF PRESENT ILLNESS: The patient is a 38-year-old gentleman and morbidly obese, BMI of 40, and seen in the emergency room for 2-3 day history of acute onset of the left lower quadrant pain. According to the patient, pain is about 4/10 and denied fever, but have diarrhea and also nauseated. The patient had similar episode about a month ago and was attributed to diverticulitis and has been treated with medication. The patient said it subsequently resolved and but now has come back. PAST MEDICAL HISTORY: Significant for morbid obesity. No diabetes, [place], CVA, hypertension. SOCIAL HISTORY: The patient is chewing tobacco and denies alcohol use. ALLERGIES AND MEDICATION: Please refer to nursing for details. SURGICAL HISTORY: No abdominal surgery. REVIEW OF SYSTEMS: Same as history of present illness. PHYSICAL EXAMINATION: GENERAL: A very pleasant gentleman, in no acute distress. HEENT: Normocephalic, atraumatic. Sclerae anicteric. LUNGS: Clear to auscultation. HEART: Regular rate and rhythm. ABDOMEN: Soft. No distention and no surgical scar. Umbilical hernia, small and exquisite tenderness in the left lower quadrant. No rebound tenderness. LABORATORY DATA: Upon consultation, white count 16.5, H and H is 17 and 47, and platelets 298. BUN is 16, creatinine is 1.0, total bilirubin is 2.5. AST and ALT of 20 and 52, alkaline phosphatase is 49, troponin is 0.05. Albumin is 3.5. UA, does not seem to have any UTI pattern. CAT scan report, proximal sigmoid wall thickening is 7 to 8 cm and also with collection 1.6 cm posterior to the sigmoid colon, presumably abscess, too small to be drained. IMPRESSION: Recurrent diverticulitis with microperforation. The patient would benefit from antibiotic treatment, n.p.o. as you are doing, and when the pain is getting better, we can start oral diet, and if tolerated, patient can go home on oral antibiotic. Have to have at least 3 weeks of Flagyl and Levaquin and preferably a followup colonoscopy 2 months from today. To the contrary, if the patient does not react to conservative management of antibiotic treatment, then the patient will benefit to have transfer outside of the facility for surgical management as the patient is morbidly obese with a BMI of 40 to have probably a Kika procedure back in 3-6 months and then a 2nd stage to connect patient together. All the plan has been discussed with the patient and the patient concur and asking if I have to be transferred where to go. We will probably get him tertiary care center in [facility], and for the time being, the patient responded very favorably with antibiotic treatment, the pain is getting better and relaxing, and hopefully antibiotic would do the trick and the patient will have a followup colonoscopy locally in 2 months. We will follow the patient with you. Thank you for the kind referral. YUMIKO ROACH /[id number]
[2019-03-11] MEDS: Sodium Chloride 0.9% 1,000 ML IV SCH (23:20)
[2019-03-12] MEDS: metroNIDAZOLE/Normal Saline 500 MG in Premix Bag 1 BAG IV SCH ×4 (00:03→17:36)
[2019-03-12] MEDS: Heparin Sodium 5,000 Units/ML Vial SUBCUT SCH ×3 (03:54→20:28)
[2019-03-12] MEDS: Piperacillin/Tazobactam 4.5 GM in Sodium Chloride 0.9% 100 ML IV SCH ×3 (03:55→19:43)
[2019-03-12 07:16] LABS: CHLORIDE,CL 106 mmol/L (98-107); SODIUM,NA 142 mmol/L (136-148)
[2019-03-12] MEDS: Nicotine 14 MG/24 Hr Patch TRDERM SCH (08:36)
[2019-03-12] MEDS ORDERED: Acetaminophen 325 MG Tab PO PRN (09:04)
[2019-03-12] MEDS: Sodium Chloride 0.9% 1,000 ML IV SCH ×2 (09:46→22:12)
--- NOTE | 2019-03-12 10:26 | PCM.PN ---
<Steffi Wood M - Last Filed: 03/12/19 10:46> - General Info Date of Service: 03/12/19 Admission Dx/Problem (Free Text): Admission Diagnosis/Problem Admission Diagnosis/Problem Diverticulitis Subjective Update: Sitting up in the chair today, no abdominal pain. Feeling overall fairly well today. No abdominal pain, passing gas and had BM yesterday morning. NO other concerns. Functional Status: Reports: Pain Controlled, Ambulating, Urinating - Review of Systems General: Reports: No Symptoms. Denies: Fever, Weakness, Fatigue HEENT: Reports: No Symptoms. Denies: Headaches, Sore Throat, Visual Changes Pulmonary: Reports: No Symptoms. Denies: Shortness of Breath Cardiovascular: Reports: No Symptoms. Denies: Chest Pain Gastrointestinal: Reports: Flatus. Denies: Abdominal Pain, Constipation, Diarrhea, Nausea, Vomiting Genitourinary: Reports: No Symptoms Musculoskeletal: Reports: No Symptoms Skin: Reports: No Symptoms Neurological: Reports: No Symptoms Psychiatric: Reports: No Symptoms - Patient Data Vitals - Most Recent: Last Vital Signs Temp 98.1 F 03/12/19 07:10 Pulse 75 03/12/19 07:10 Resp 16 03/12/19 07:10 BP 143/81 H 03/12/19 07:10 Pulse Ox 94 L 03/12/19 07:10 Weight - Most Recent: 124.738 kg I&O - Last 24 Hours: Intake & Output 03/11/19 03/12/19 03/12/19 22:59 06:59 14:59 Intake Total 655 840 100 Output Total 0 800 Balance 655 40 100 Lab Results Last 24 Hours: Laboratory Results - last 24 hr 03/11/19 03/12/19 03/12/19 Range/Units 11:23 05:45 05:45 WBC 11.25 H (4.0-11.0) K/uL RBC 4.53 (4.50-5.90) M/uL Hgb 14.7 (13.0-17.0) g/dL Hct 42.7 (38.0-50.0) % MCV 94.3 (80.0-98.0) fL MCH 32.5 H (27.0-32.0) pg MCHC 34.4 (31.0-37.0) g/dL RDW Std Deviation 40.0 (28.0-62.0) fl RDW Coeff of Nayeli 12 (11.0-15.0) % Plt Count 269 (150-400) K/uL MPV 9.70 (7.40-12.00) fL Neut % (Auto) 61.8 (48.0-80.0) % Lymph % (Auto) 25.0 (16.0-40.0) % [place] % (Auto) 10.4 (0.0-15.0) % Eos % (Auto) 2.5 (0.0-7.0) % Baso % (Auto) 0.3 (0.0-1.5) % Neut # (Auto) 7.0 H (1.4-5.7) K/uL Lymph # (Auto) 2.8 H (0.6-2.4) K/uL [place] # (Auto) 1.2 H (0.0-0.8) K/uL Eos # (Auto) 0.3 (0.0-0.7) K/uL Baso # (Auto) 0.0 (0.0-0.1) K/uL Nucleated RBC % 0.0 /100WBC Nucleated RBCs # 0 K/uL Sodium 142 (136-148) mmol/L Potassium 3.8 (3.5-5.1) mmol/L Chloride 106 (98-107) mmol/L Carbon Dioxide 25.9 (21.0-32.0) mmol/L BUN 17 (7.0-18.0) mg/dL Creatinine 1.0 (0.8-1.3) mg/dL Est Cr Clr Drug Dosing 104.43 mL/min Estimated GFR (MDRD) > 60.0 ml/min Glucose 83 (74-106) mg/dL Calcium 8.5 (8.5-10.1) mg/dL Total Bilirubin 1.9 H (0.2-1.0) mg/dL AST 16 (15-37) IU/L ALT 40 (14-63) IU/L Alkaline Phosphatase 43 L (46-116) U/L Total Protein 7.4 (6.4-8.2) g/dL Albumin 3.2 L (3.4-5.0) g/dL Globulin 4.2 H (2.6-4.0) g/dL Albumin/Globulin Ratio 0.8 L (0.9-1.6) Urine Color DARK YELLOW Urine Appearance CLEAR Urine pH 6.5 (5.0-8.0) Ur Specific [place] 1.010 (1.001-1.035) Urine Protein 30 H (NEGATIVE) mg/dL Urine Glucose (UA) NEGATIVE (NEGATIVE) mg/dL Urine Ketones NEGATIVE (NEGATIVE) mg/dL Urine Occult Blood TRACE-INTACT H (NEGATIVE) Urine Nitrite POSITIVE H (NEGATIVE) Urine Bilirubin SMALL H (NEGATIVE) Urine Ictotest NEGATIVE Urine Urobilinogen 1.0 (<2.0) EU/dL Ur Leukocyte Esterase NEGATIVE (NEGATIVE) Urine RBC 0-2 (0-2/HPF) Urine WBC 0-1 (0-5/HPF) Ur Epithelial Cells OCCASIONAL (NONE-FEW) Urine Bacteria FEW (NEGATIVE) Urine Mucus MODERATE (NONE-MOD) Med Orders - Current: Current Medications Acetaminophen (Tylenol) 650 mg PO Q4H PRN PRN Reason: Pain Heparin Sodium (Porcine) (Heparin Sodium) 5,000 units SUBCUT Q8H [facility] Last Admin: 03/12/19 03:54 Dose: 5,000 units Metronidazole 500 mg/ Premix 100 mls @ 100 mls/hr IV QID [facility] Last Admin: 03/12/19 05:50 Dose: 100 mls/hr Sodium Chloride (Normal Saline) 1,000 mls @ 125 mls/hr IV ASDIRECTED [facility] Last Admin: 03/12/19 09:46 Dose: 125 mls/hr Piperacillin Sod/Tazobactam (Sod 4.5 gm/ Sodium Chloride) 100 mls @ 100 mls/hr IV Q8H [facility] Last Admin: 03/12/19 03:55 Dose: 100 mls/hr Ketorolac Tromethamine (Toradol) 30 mg IV Q6H PRN PRN Reason: Pain (moderate 4-6) Last Admin: 03/11/19 18:04 Dose: 30 mg Morphine Sulfate (Morphine) 2 mg IVPUSH Q2H PRN PRN Reason: Pain (severe 7-10) Stop: 03/12/19 12:11 Nicotine (Habitrol) 14 mg TRDERM DAILY [facility] Last Admin: 03/12/19 08:36 Dose: 14 mg Ondansetron HCl (Zofran) 4 mg IVPUSH Q6H PRN PRN Reason: Nausea/Vomiting Discontinued Medications Sodium Chloride (Normal Saline) 1,000 mls @ 999 mls/hr IV STAT ONE Stop: 03/11/19 10:09 Last Admin: 03/11/19 09:21 Dose: 999 mls/hr Metronidazole 500 mg/ Premix 100 mls @ 100 mls/hr IV ONETIME ONE Stop: 03/11/19 12:45 Last Admin: 03/11/19 12:45 Dose: 100 mls/hr Piperacillin Sod/Tazobactam (Sod 3.375 gm/ Sodium Chloride) 50 mls @ 100 mls/ hr IV ONETIME ONE Stop: 03/11/19 12:15 Last Admin: 03/11/19 12:02 Dose: 100 mls/hr Sodium Chloride (Normal Saline) 1,000 mls @ 125 mls/hr IV STAT [facility] Last Admin: 03/11/19 12:01 Dose: 125 mls/hr Piperacillin Sod/Tazobactam (Sod 4.5 gm/ Sodium Chloride) 100 mls @ 100 mls/hr IV Q8H [facility] Last Admin: 03/11/19 14:59 Dose: Not Given Iopamidol (Isovue Multipack-370 (76%)) 100 ml IVPUSH ONETIME STA Stop: 03/11/19 10:48 Last Admin: 03/11/19 10:53 Dose: 100 ml Ketorolac Tromethamine (Toradol) 30 mg IVPUSH ONETIME ONE Stop: 03/11/19 09:10 Last Admin: 03/11/19 09:26 Dose: 30 mg Ondansetron HCl (Zofran) 8 mg IVPUSH ONETIME ONE Stop: 03/11/19 09:10 Last Admin: 03/11/19 09:26 Dose: 8 mg - Exam General: Alert, Oriented, Cooperative, No Acute Distress Lungs: Clear to Auscultation, Normal Respiratory Effort Cardiovascular: Regular Rate, Regular Rhythm GI/Abdominal Exam: Normal Bowel Sounds, Soft, Non-Tender, No Distention, No Mass Extremities: Normal Inspection, Normal Range of Motion, Non-Tender, No Pedal Edema Neurological: No New Focal Deficit Psy/Mental Status: Alert, Normal Affect, Normal Mood - Problem List & Annotations (1) Diverticulitis of sigmoid colon SNOMED Code(s): 776793037 Code(s): K57.32 - DVTRCLI OF LG INT W/O PERFORATION OR ABSCESS W/O BLEEDING Status: Acute Priority: High Current Visit: Yes (2) Obesity (BMI 30-39.9) SNOMED Code(s): 093352341, 002768463 Code(s): E66.9 - OBESITY, UNSPECIFIED Status: Chronic Priority: Medium Current Visit: Yes - Problem List Review Problem List Initiated/Reviewed/Updated: Yes - My Orders Last 24 Hours: My Active Orders 03/12/19 09:04 Acetaminophen [Tylenol] 650 mg PO Q4H PRN 03/12/19 Breakfast Clear Liquid Diet [DIET] - Plan Plan:: This 38 year old male admitted with diverticulitis of sigmoid colon with microperforation. 1. Diverticulitis: Dr Enriquez consulted, we appreciate his assistance with this case. No pain today. Eager to drink liquids. Will start slowly today with CL and see how the day goes. Likely home tomorrow on liquids as well. Leukocytosis improving. COntinue Zosyn and Flagyl. VTE prophylaxis: Lovenox Dispo: 1 days <Shoaib Coffman - Last Filed: 03/12/19 11:01> - General Info Admission Dx/Problem (Free Text): I have seen and examined the patient independently of Steffi Wood CNP. I have discussed the case with her. I have reviewed and agreed with the plan of treatment as outlined for this patient by her. Please see orders. - Patient Data Vitals - Most Recent: Last Vital Signs Temp 36.7 C 03/12/19 10:56 Pulse 68 03/12/19 10:56 Resp 16 03/12/19 10:56 BP 138/85 03/12/19 10:56 Pulse Ox 94 L 03/12/19 10:56 I&O - Last 24 Hours: Intake & Output 03/11/19 03/12/19 03/12/19 22:59 06:59 14:59 Intake Total 655 840 100 Output Total 0 800 Balance 655 40 100 Lab Results Last 24 Hours: Laboratory Results - last 24 hr 03/11/19 03/12/19 03/12/19 Range/Units 11:23 05:45 05:45 WBC 11.25 H (4.0-11.0) K/uL RBC 4.53 (4.50-5.90) M/uL Hgb 14.7 (13.0-17.0) g/dL Hct 42.7 (38.0-50.0) % MCV 94.3 (80.0-98.0) fL MCH 32.5 H (27.0-32.0) pg MCHC 34.4 (31.0-37.0) g/dL RDW Std Deviation 40.0 (28.0-62.0) fl RDW Coeff of Nayeli 12 (11.0-15.0) % Plt Count 269 (150-400) K/uL MPV 9.70 (7.40-12.00) fL Neut % (Auto) 61.8 (48.0-80.0) % Lymph % (Auto) 25.0 (16.0-40.0) % [place] % (Auto) 10.4 (0.0-15.0) % Eos % (Auto) 2.5 (0.0-7.0) % Baso % (Auto) 0.3 (0.0-1.5) % Neut # (Auto) 7.0 H (1.4-5.7) K/uL Lymph # (Auto) 2.8 H (0.6-2.4) K/uL [place] # (Auto) 1.2 H (0.0-0.8) K/uL Eos # (Auto) 0.3 (0.0-0.7) K/uL Baso # (Auto) 0.0 (0.0-0.1) K/uL Nucleated RBC % 0.0 /100WBC Nucleated RBCs # 0 K/uL Sodium 142 (136-148) mmol/L Potassium 3.8 (3.5-5.1) mmol/L Chloride 106 (98-107) mmol/L Carbon Dioxide 25.9 (21.0-32.0) mmol/L BUN 17 (7.0-18.0) mg/dL Creatinine 1.0 (0.8-1.3) mg/dL Est Cr Clr Drug Dosing 104.43 mL/min Estimated GFR (MDRD) > 60.0 ml/min Glucose 83 (74-106) mg/dL Calcium 8.5 (8.5-10.1) mg/dL Total Bilirubin 1.9 H (0.2-1.0) mg/dL AST 16 (15-37) IU/L ALT 40 (14-63) IU/L Alkaline Phosphatase 43 L (46-116) U/L Total Protein 7.4 (6.4-8.2) g/dL Albumin 3.2 L (3.4-5.0) g/dL Globulin 4.2 H (2.6-4.0) g/dL Albumin/Globulin Ratio 0.8 L (0.9-1.6) Urine Color DARK YELLOW Urine Appearance CLEAR Urine pH 6.5 (5.0-8.0) Ur Specific [place] 1.010 (1.001-1.035) Urine Protein 30 H (NEGATIVE) mg/dL Urine Glucose (UA) NEGATIVE (NEGATIVE) mg/dL Urine Ketones NEGATIVE (NEGATIVE) mg/dL Urine Occult Blood TRACE-INTACT H (NEGATIVE) Urine Nitrite POSITIVE H (NEGATIVE) Urine Bilirubin SMALL H (NEGATIVE) Urine Ictotest NEGATIVE Urine Urobilinogen 1.0 (<2.0) EU/dL Ur Leukocyte Esterase NEGATIVE (NEGATIVE) Urine RBC 0-2 (0-2/HPF) Urine WBC 0-1 (0-5/HPF) Ur Epithelial Cells OCCASIONAL (NONE-FEW) Urine Bacteria FEW (NEGATIVE) Urine Mucus MODERATE (NONE-MOD) Med Orders - Current: Current Medications Acetaminophen (Tylenol) 650 mg PO Q4H PRN PRN Reason: Pain Heparin Sodium (Porcine) (Heparin Sodium) 5,000 units SUBCUT Q8H [facility] Last Admin: 03/12/19 03:54 Dose: 5,000 units Metronidazole 500 mg/ Premix 100 mls @ 100 mls/hr IV QID [facility] Last Admin: 03/12/19 05:50 Dose: 100 mls/hr Sodium Chloride (Normal Saline) 1,000 mls @ 125 mls/hr IV ASDIRECTED [facility] Last Admin: 03/12/19 09:46 Dose: 125 mls/hr Piperacillin Sod/Tazobactam (Sod 4.5 gm/ Sodium Chloride) 100 mls @ 100 mls/hr IV Q8H [facility] Last Admin: 03/12/19 03:55 Dose: 100 mls/hr Ketorolac Tromethamine (Toradol) 30 mg IV Q6H PRN PRN Reason: Pain (moderate 4-6) Last Admin: 03/11/19 18:04 Dose: 30 mg Morphine Sulfate (Morphine) 2 mg IVPUSH Q2H PRN PRN Reason: Pain (severe 7-10) Stop: 03/12/19 12:11 Nicotine (Habitrol) 14 mg TRDERM DAILY [facility] Last Admin: 03/12/19 08:36 Dose: 14 mg Ondansetron HCl (Zofran) 4 mg IVPUSH Q6H PRN PRN Reason: Nausea/Vomiting Discontinued Medications Sodium Chloride (Normal Saline) 1,000 mls @ 999 mls/hr IV STAT ONE Stop: 03/11/19 10:09 Last Admin: 03/11/19 09:21 Dose: 999 mls/hr Metronidazole 500 mg/ Premix 100 mls @ 100 mls/hr IV ONETIME ONE Stop: 03/11/19 12:45 Last Admin: 03/11/19 12:45 Dose: 100 mls/hr Piperacillin Sod/Tazobactam (Sod 3.375 gm/ Sodium Chloride) 50 mls @ 100 mls/ hr IV ONETIME ONE Stop: 03/11/19 12:15 Last Admin: 03/11/19 12:02 Dose: 100 mls/hr Sodium Chloride (Normal Saline) 1,000 mls @ 125 mls/hr IV STAT [facility] Last Admin: 03/11/19 12:01 Dose: 125 mls/hr Piperacillin Sod/Tazobactam (Sod 4.5 gm/ Sodium Chloride) 100 mls @ 100 mls/hr IV Q8H [facility] Last Admin: 03/11/19 14:59 Dose: Not Given Iopamidol (Isovue Multipack-370 (76%)) 100 ml IVPUSH ONETIME STA Stop: 03/11/19 10:48 Last Admin: 03/11/19 10:53 Dose: 100 ml Ketorolac Tromethamine (Toradol) 30 mg IVPUSH ONETIME ONE Stop: 03/11/19 09:10 Last Admin: 03/11/19 09:26 Dose: 30 mg Ondansetron HCl (Zofran) 8 mg IVPUSH ONETIME ONE Stop: 03/11/19 09:10 Last Admin: 03/11/19 09:26 Dose: 8 mg - Problem List & Annotations (1) Diverticulitis of sigmoid colon SNOMED Code(s): 622280844 Code(s): K57.32 - DVTRCLI OF LG INT W/O PERFORATION OR ABSCESS W/O BLEEDING Status: Acute Priority: High Current Visit: Yes (2) Lesion of gingiva SNOMED Code(s): 491552808 Code(s): K06.8 - OTH DISRD OF GINGIVA AND EDENTULOUS ALVEOLAR RIDGE Status : Chronic Priority: Medium Current Visit: Yes (3) Smokeless tobacco use SNOMED Code(s): 786298359 Code(s): Z72.0 - TOBACCO USE Status: Chronic Priority: Medium Current Visit: Yes (4) Obesity (BMI 30-39.9) SNOMED Code(s): 869679149, 507054209 Code(s): E66.9 - OBESITY, UNSPECIFIED Status: Chronic Priority: Medium Current Visit: Yes - My Orders Last 24 Hours: My Active Orders 03/11/19 12:10 Oxygen Therapy [RC] PRN Up ad Mehnaz [RC] ASDIRECTED VTE/DVT Education [RC] PER UNIT ROUTINE Vital Signs [RC] Q4H Consult to Physician [CONS] Routine Ketorolac [Toradol] 30 mg IV Q6H PRN Morphine 2 mg IVPUSH Q2H PRN Ondansetron [Zofran] 4 mg IVPUSH Q6H PRN Resuscitation Status Routine 03/11/19 12:12 Notify Provider Consults [RC] ASDIRECTED 03/11/19 12:15 Heparin Sodium 5,000 units SUBCUT Q8H Nicotine [Habitrol] 14 mg TRDERM DAILY Sodium Chloride 0.9% [Normal Saline] 1,000 ml IV ASDIRECTED 03/11/19 18:00 metroNIDAZOLE/Normal Saline [Flagyl 500 MG in NS 100 ML] 500 mg Premix Bag 1 bag IV QID 03/11/19 20:00 Piperacillin/Tazobactam [Piperacil-Tazobact] 4.5 gm Sodium Chloride 0.9% [ Normal Saline] 100 ml IV Q8H
--- NOTE | 2019-03-12 12:22 | PCM.SURGPN ---
- General Info Date of Service: 03/12/19 Functional Status: Reports: Pain Controlled - Review of Systems Gastrointestinal: Reports: No Symptoms (pain all resolved) - Patient Data Vitals - Most Recent: Last Vital Signs Temp 98.1 F 03/12/19 10:56 Pulse 68 03/12/19 10:56 Resp 16 03/12/19 10:56 BP 138/85 03/12/19 10:56 Pulse Ox 94 L 03/12/19 10:56 Weight - Most Recent: 275 lb I&O - Last 24 Hours: Intake & Output 03/11/19 03/12/19 03/12/19 22:59 06:59 14:59 Intake Total 655 840 100 Output Total 0 800 Balance 655 40 100 Lab Results Last 24 Hrs: Laboratory Results - last 24 hr 03/12/19 03/12/19 Range/Units 05:45 05:45 WBC 11.25 H (4.0-11.0) K/uL RBC 4.53 (4.50-5.90) M/uL Hgb 14.7 (13.0-17.0) g/dL Hct 42.7 (38.0-50.0) % MCV 94.3 (80.0-98.0) fL MCH 32.5 H (27.0-32.0) pg MCHC 34.4 (31.0-37.0) g/dL RDW Std Deviation 40.0 (28.0-62.0) fl RDW Coeff of Nayeli 12 (11.0-15.0) % Plt Count 269 (150-400) K/uL MPV 9.70 (7.40-12.00) fL Neut % (Auto) 61.8 (48.0-80.0) % Lymph % (Auto) 25.0 (16.0-40.0) % [place] % (Auto) 10.4 (0.0-15.0) % Eos % (Auto) 2.5 (0.0-7.0) % Baso % (Auto) 0.3 (0.0-1.5) % Neut # (Auto) 7.0 H (1.4-5.7) K/uL Lymph # (Auto) 2.8 H (0.6-2.4) K/uL [place] # (Auto) 1.2 H (0.0-0.8) K/uL Eos # (Auto) 0.3 (0.0-0.7) K/uL Baso # (Auto) 0.0 (0.0-0.1) K/uL Nucleated RBC % 0.0 /100WBC Nucleated RBCs # 0 K/uL Sodium 142 (136-148) mmol/L Potassium 3.8 (3.5-5.1) mmol/L Chloride 106 (98-107) mmol/L Carbon Dioxide 25.9 (21.0-32.0) mmol/L BUN 17 (7.0-18.0) mg/dL Creatinine 1.0 (0.8-1.3) mg/dL Est Cr Clr Drug Dosing 104.43 mL/min Estimated GFR (MDRD) > 60.0 ml/min Glucose 83 (74-106) mg/dL Calcium 8.5 (8.5-10.1) mg/dL Total Bilirubin 1.9 H (0.2-1.0) mg/dL AST 16 (15-37) IU/L ALT 40 (14-63) IU/L Alkaline Phosphatase 43 L (46-116) U/L Total Protein 7.4 (6.4-8.2) g/dL Albumin 3.2 L (3.4-5.0) g/dL Globulin 4.2 H (2.6-4.0) g/dL Albumin/Globulin Ratio 0.8 L (0.9-1.6) Med Orders - Current: Current Medications Acetaminophen (Tylenol) 650 mg PO Q4H PRN PRN Reason: Pain Heparin Sodium (Porcine) (Heparin Sodium) 5,000 units SUBCUT Q8H [facility] Last Admin: 03/12/19 11:27 Dose: 5,000 units Metronidazole 500 mg/ Premix 100 mls @ 100 mls/hr IV QID [facility] Last Admin: 03/12/19 05:50 Dose: 100 mls/hr Sodium Chloride (Normal Saline) 1,000 mls @ 125 mls/hr IV ASDIRECTED [facility] Last Admin: 03/12/19 09:46 Dose: 125 mls/hr Piperacillin Sod/Tazobactam (Sod 4.5 gm/ Sodium Chloride) 100 mls @ 100 mls/hr IV Q8H [facility] Last Admin: 03/12/19 11:52 Dose: 100 mls/hr Ketorolac Tromethamine (Toradol) 30 mg IV Q6H PRN PRN Reason: Pain (moderate 4-6) Last Admin: 03/11/19 18:04 Dose: 30 mg Nicotine (Habitrol) 14 mg TRDERM DAILY [facility] Last Admin: 03/12/19 08:36 Dose: 14 mg Ondansetron HCl (Zofran) 4 mg IVPUSH Q6H PRN PRN Reason: Nausea/Vomiting Discontinued Medications Sodium Chloride (Normal Saline) 1,000 mls @ 999 mls/hr IV STAT ONE Stop: 03/11/19 10:09 Last Admin: 03/11/19 09:21 Dose: 999 mls/hr Metronidazole 500 mg/ Premix 100 mls @ 100 mls/hr IV ONETIME ONE Stop: 03/11/19 12:45 Last Admin: 03/11/19 12:45 Dose: 100 mls/hr Piperacillin Sod/Tazobactam (Sod 3.375 gm/ Sodium Chloride) 50 mls @ 100 mls/ hr IV ONETIME ONE Stop: 03/11/19 12:15 Last Admin: 03/11/19 12:02 Dose: 100 mls/hr Sodium Chloride (Normal Saline) 1,000 mls @ 125 mls/hr IV STAT [facility] Last Admin: 03/11/19 12:01 Dose: 125 mls/hr Piperacillin Sod/Tazobactam (Sod 4.5 gm/ Sodium Chloride) 100 mls @ 100 mls/hr IV Q8H [facility] Last Admin: 03/11/19 14:59 Dose: Not Given Iopamidol (Isovue Multipack-370 (76%)) 100 ml IVPUSH ONETIME STA Stop: 03/11/19 10:48 Last Admin: 03/11/19 10:53 Dose: 100 ml Ketorolac Tromethamine (Toradol) 30 mg IVPUSH ONETIME ONE Stop: 03/11/19 09:10 Last Admin: 03/11/19 09:26 Dose: 30 mg Morphine Sulfate (Morphine) 2 mg IVPUSH Q2H PRN PRN Reason: Pain (severe 7-10) Stop: 03/12/19 12:11 Ondansetron HCl (Zofran) 8 mg IVPUSH ONETIME ONE Stop: 03/11/19 09:10 Last Admin: 03/11/19 09:26 Dose: 8 mg - Exam GI/Abdominal Exam: Soft, Non-Tender, No Distention - Problem List Review Problem List Initiated/Reviewed/Updated: Yes - My Orders Last 24 Hours: Active Orders 24 hr Category Date Time Status Admission Status [Patient Status] [ADT] Stat ADT 03/11/19 11:50 Active Notify Provider Consults [RC] ASDIRECTED Care 03/11/19 12:12 Active Oxygen Therapy [RC] PRN Care 03/11/19 12:10 Active Up ad Mehnaz [RC] ASDIRECTED Care 03/11/19 12:10 Active VTE/DVT Education [RC] PER UNIT ROUTINE Care 03/11/19 12:10 Active Vital Signs [RC] Q4H Care 03/11/19 12:10 Active Consult to Physician [CONS] Routine Cons 03/11/19 12:10 Active Clear Liquid Diet [DIET] Diet 03/12/19 Breakfast Active CULTURE URINE [RM] Stat Lab 03/11/19 11:23 Received Acetaminophen [Tylenol] Med 03/12/19 09:04 Active 650 mg PO Q4H PRN Heparin Sodium Med 03/11/19 12:15 Active 5,000 units SUBCUT Q8H Ketorolac [Toradol] Med 03/11/19 12:10 Active 30 mg IV Q6H PRN Nicotine [Habitrol] Med 03/11/19 12:15 Active 14 mg TRDERM DAILY Ondansetron [Zofran] Med 03/11/19 12:10 Active 4 mg IVPUSH Q6H PRN Piperacillin/Tazobactam [Piperacil-Tazobact] 4.5 gm Med 03/11/19 20:00 Active Sodium Chloride 0.9% [Normal Saline] 100 ml IV Q8H Sodium Chloride 0.9% [Normal Saline] 1,000 ml Med 03/11/19 12:15 Active IV ASDIRECTED metroNIDAZOLE/Normal Saline [Flagyl 500 MG in NS 100 ML Med 03/11/19 18:00 Active ] 500 mg Premix Bag 1 bag IV QID Resuscitation Status Routine Resus Stat 03/11/19 12:10 Ordered Medication Orders Acetaminophen (Tylenol) 650 mg PO Q4H PRN PRN Reason: Pain Heparin Sodium (Porcine) (Heparin Sodium) 5,000 units SUBCUT Q8H [facility] Last Admin: 03/12/19 11:27 Dose: 5,000 units Admin: 03/12/19 03:54 Dose: 5,000 units Admin: 03/11/19 19:54 Dose: 5,000 units Admin: 03/11/19 13:24 Dose: 5,000 units Metronidazole 500 mg/ Premix 100 mls @ 100 mls/hr IV QID [facility] Last Admin: 03/12/19 05:50 Dose: 100 mls/hr Infusion: 03/12/19 01:03 Dose: 100 mls/hr Admin: 03/12/19 00:03 Dose: 100 mls/hr Infusion: 03/11/19 18:53 Dose: 100 mls/hr Admin: 03/11/19 17:53 Dose: 100 mls/hr Sodium Chloride (Normal Saline) 1,000 mls @ 125 mls/hr IV ASDIRECTED [facility] Last Admin: 03/12/19 09:46 Dose: 125 mls/hr Infusion: 03/12/19 07:20 Dose: 125 mls/hr Admin: 03/11/19 23:20 Dose: 125 mls/hr Piperacillin Sod/Tazobactam (Sod 4.5 gm/ Sodium Chloride) 100 mls @ 100 mls/hr IV Q8H [facility] Last Admin: 03/12/19 11:52 Dose: 100 mls/hr Infusion: 03/12/19 04:55 Dose: 100 mls/hr Admin: 03/12/19 03:55 Dose: 100 mls/hr Infusion: 03/11/19 20:53 Dose: 100 mls/hr Admin: 03/11/19 19:53 Dose: 100 mls/hr Ketorolac Tromethamine (Toradol) 30 mg IV Q6H PRN PRN Reason: Pain (moderate 4-6) Last Admin: 03/11/19 18:04 Dose: 30 mg Nicotine (Habitrol) 14 mg TRDERM DAILY [facility] Last Admin: 03/12/19 08:36 Dose: 14 mg Admin: 03/11/19 13:24 Dose: 14 mg Ondansetron HCl (Zofran) 4 mg IVPUSH Q6H PRN PRN Reason: Nausea/Vomiting - Assessment Assessment (Free Text/Narrative):: Responded well to iv abx; pain resolved; would continue iv abx till in the morning; agree w started clear liquid diet; pt likely would keep on clear liquid diet for X 5 days, even at home, as there was a microperforation with abscess; keep po abx for a total treatment of 3 wks; fu w me 1 - 2 wks after dc ; colonoscope 2 mos. if pt continue to do so well, ok to dc home in the morning ; keep clear liquid diet though, because of microperforation - Plan Plan (Free Text/Narrative):: Responded well to iv abx; pain resolved; would continue iv abx till in the morning; agree w started clear liquid diet; pt likely would keep on clear liquid diet for X 5 days, even at home, as there was a microperforation with abscess; keep po abx for a total treatment of 3 wks; fu w me 1 - 2 wks after dc ; colonoscope 2 mos. if pt continue to do so well, ok to dc home in the morning ; keep clear liquid diet though, because of microperforation
[2019-03-13] MEDS: metroNIDAZOLE/Normal Saline 500 MG in Premix Bag 1 BAG IV SCH ×2 (00:06→06:08)
[2019-03-13] MEDS: Piperacillin/Tazobactam 4.5 GM in Sodium Chloride 0.9% 100 ML IV SCH (03:59)
[2019-03-13] MEDS: Heparin Sodium 5,000 Units/ML Vial SUBCUT SCH (04:00)
[2019-03-13 06:44] LABS: CHLORIDE,CL 108 mmol/L (98-107); SODIUM,NA 143 mmol/L (136-148)
[2019-03-13] MEDS: Nicotine 14 MG/24 Hr Patch TRDERM SCH (08:01)
--- NOTE | 2019-03-13 08:30 | PCM.DCSUM1 ---
<Steffi Wood M - Last Filed: 03/13/19 09:55> Discharge Summary - Hospital Course Brief History: This otherwise healthy 38-year-old gentleman presented to the ED with the chief complaint of left lower quadrant abdominal pain. The pain is fairly localized left lower quadrant and does not radiate. The patient was also here in December with similar symptoms and it was thought to be diverticulitis. The patient says that the pain started up 2-3 days ago and has gotten progressively worse. The pain is lessened when lying down and worse when moving around. He has had some nausea without vomiting associated with this. The patient denies any fever or chills. He has not been taking any medications chronically. The patient also has denied any diarrhea or constipation. Diagnosis: Stroke: No - Discharge Data Discharge Date: 03/13/19 Discharge Disposition: Home, Self-Care 01 Condition: Good - Discharge Diagnosis/Problem(s) (1) Diverticulitis of sigmoid colon SNOMED Code(s): 063764997 ICD Code: K57.32 - DVTRCLI OF LG INT W/O PERFORATION OR ABSCESS W/O BLEEDING Status: Acute Priority: High (2) Obesity (BMI 30-39.9) SNOMED Code(s): 339044253, 039425979 ICD Code: E66.9 - OBESITY, UNSPECIFIED Status: Chronic Priority: Medium - Patient Summary/Data Consults: Consultations 03/11/19 12:10 Consult to Physician [CONS] Routine - Patient Instructions Diet: Clear Liquid Diet, Full Liquid Diet, GI Soft/Low Residue/Low Fiber Diet, Other: Clear liq and full liq diet for next 3-5 days then slowly advance reg. soft Activity: As Tolerated Driving: May Drive Today Showering/Bathing: May Shower Notify Provider of: Fever, Increased Pain, Swelling and Redness, Drainage, Nausea and/or Vomiting - Discharge Plan *PRESCRIPTION DRUG MONITORING PROGRAM REVIEWED*: Not Applicable *COPY OF PRESCRIPTION DRUG MONITORING REPORT IN PATIENT HEMALATHA: Not Applicable Prescriptions/Med Rec: levoFLOXacin [Levaquin] 750 mg PO DAILY #18 tab metroNIDAZOLE [Flagyl] 500 mg PO TID #54 tablet Home Medications: Home Meds levoFLOXacin [Levaquin] 750 mg PO DAILY #18 tab 03/13/19 [Rx] metroNIDAZOLE [Flagyl] 500 mg PO TID #54 tablet 03/13/19 [Rx] Oxygen Therapy Mode: Room Air Patient Handouts: Diverticulitis, [id number], Clear Liquid Diet, Adult, Levofloxacin tablets, Low-Fiber Eating Plan, Metronidazole tablets or capsules Referrals: Bobby Sorensen MD [Resident] - 03/20/19 2:00 pm Glynn Enriquez MD [Physician] - 03/27/19 9:00 am (1-2 weeks,with Colonoscopy in 2 months.) - Discharge Summary/Plan Comment DC Time >30 min.: No Discharge Summary/Plan Comment: Discharge Diagnoses: Diverticulitis of sigmoid colon with tiny abscess Clayton was admitted and treated for diverticulitis with Zosyn and Flagyl. He was keep NPO until pain resolved. Leukocytosis improved today and actually resolved. Yesterday, pain was nearly 0, CL diet started and he tolerated this really well. Dr Enriquez was consulted on admission due to severity of CT scan and tiny abscess. He recommends treatment with antibiotics for total of 3 weeks as well as follow up with him for colonoscopy in 2 mo. Clayton was educated to keep low fiber diet for next few weeks to 2 months. He was encouraged to keep CL diet over next couple days and advance slowly to regular low fiber. He will continue Flagyl TID and Levaquin 750 mg daily for 18 more days. Follow up with PCP and Dr Enriquez. He is to return to ED or clinic if concerns should arise. - General Info Date of Service: 03/13/19 Admission Dx/Problem (Free Text: Diverticulitis Subjective Update: Doing well this morning, tolerating CL diet well. No abdominal pain at all. Passing gas and having BMs. No other concerns. Eager to go home. Functional Status: Reports: Pain Controlled, Tolerating Diet, Ambulating, Urinating - Review of Systems General: Reports: No Symptoms. Denies: Fever, Weakness, Fatigue Pulmonary: Reports: No Symptoms. Denies: Shortness of Breath Cardiovascular: Reports: No Symptoms. Denies: Chest Pain Gastrointestinal: Reports: No Symptoms, Flatus. Denies: Abdominal Pain, Constipation, Nausea, Vomiting Musculoskeletal: Reports: No Symptoms. Denies: Neck Pain Skin: Reports: No Symptoms Neurological: Reports: No Symptoms Psychiatric: Reports: No Symptoms - Patient Data Vitals - Most Recent: Last Vital Signs Temp 98.0 F 03/13/19 07:52 Pulse 60 03/13/19 07:52 Resp 16 03/13/19 07:52 BP 139/84 03/13/19 07:52 Pulse Ox 98 03/13/19 07:52 Weight - Most Recent: 124.738 kg I&O - Last 24 hours: Intake & Output 03/12/19 03/13/19 03/13/19 22:59 06:59 14:59 Intake Total 3364 650 100 Output Total 930 1100 Balance 2434 -450 100 Lab Results - Last 24 hrs: Laboratory Results - last 24 hr 03/13/19 03/13/19 Range/Units 06:20 06:20 WBC 8.72 (4.0-11.0) K/uL RBC 4.29 L (4.50-5.90) M/uL Hgb 14.0 (13.0-17.0) g/dL Hct 40.0 (38.0-50.0) % MCV 93.2 (80.0-98.0) fL MCH 32.6 H (27.0-32.0) pg MCHC 35.0 (31.0-37.0) g/dL RDW Std Deviation 39.7 (28.0-62.0) fl RDW Coeff of Nayeli 12 (11.0-15.0) % Plt Count 240 (150-400) K/uL MPV 9.30 (7.40-12.00) fL Neut % (Auto) 58.4 (48.0-80.0) % Lymph % (Auto) 29.9 (16.0-40.0) % Monroe % (Auto) 8.3 (0.0-15.0) % Eos % (Auto) 3.2 (0.0-7.0) % Baso % (Auto) 0.2 (0.0-1.5) % Neut # (Auto) 5.1 (1.4-5.7) K/uL Lymph # (Auto) 2.6 H (0.6-2.4) K/uL Monroe # (Auto) 0.7 (0.0-0.8) K/uL Eos # (Auto) 0.3 (0.0-0.7) K/uL Baso # (Auto) 0.0 (0.0-0.1) K/uL Nucleated RBC % 0.0 /100WBC Nucleated RBCs # 0 K/uL Sodium 143 (136-148) mmol/L Potassium 4.2 (3.5-5.1) mmol/L Chloride 108 H (98-107) mmol/L Carbon Dioxide 27.3 (21.0-32.0) mmol/L BUN 13 (7.0-18.0) mg/dL Creatinine 1.0 (0.8-1.3) mg/dL Est Cr Clr Drug Dosing 104.43 mL/min Estimated GFR (MDRD) > 60.0 ml/min Glucose 86 (74-106) mg/dL Calcium 8.4 L (8.5-10.1) mg/dL Med Orders - Current: Current Medications Acetaminophen (Tylenol) 650 mg PO Q4H PRN PRN Reason: Pain Last Admin: 03/12/19 17:35 Dose: 650 mg Heparin Sodium (Porcine) (Heparin Sodium) 5,000 units SUBCUT Q8H [facility] Last Admin: 03/13/19 04:00 Dose: 5,000 units Metronidazole 500 mg/ Premix 100 mls @ 100 mls/hr IV QID [facility] Last Admin: 03/13/19 06:08 Dose: 100 mls/hr Sodium Chloride (Normal Saline) 1,000 mls @ 125 mls/hr IV ASDIRECTED [facility] Last Admin: 03/12/19 22:12 Dose: 125 mls/hr Piperacillin Sod/Tazobactam (Sod 4.5 gm/ Sodium Chloride) 100 mls @ 100 mls/hr IV Q8H [facility] Last Admin: 03/13/19 03:59 Dose: 100 mls/hr Ketorolac Tromethamine (Toradol) 30 mg IV Q6H PRN PRN Reason: Pain (moderate 4-6) Last Admin: 03/11/19 18:04 Dose: 30 mg Nicotine (Habitrol) 14 mg TRDERM DAILY [facility] Last Admin: 03/13/19 08:01 Dose: Not Given Ondansetron HCl (Zofran) 4 mg IVPUSH Q6H PRN PRN Reason: Nausea/Vomiting Discontinued Medications Sodium Chloride (Normal Saline) 1,000 mls @ 999 mls/hr IV STAT ONE Stop: 03/11/19 10:09 Last Admin: 03/11/19 09:21 Dose: 999 mls/hr Metronidazole 500 mg/ Premix 100 mls @ 100 mls/hr IV ONETIME ONE Stop: 03/11/19 12:45 Last Admin: 03/11/19 12:45 Dose: 100 mls/hr Piperacillin Sod/Tazobactam (Sod 3.375 gm/ Sodium Chloride) 50 mls @ 100 mls/ hr IV ONETIME ONE Stop: 03/11/19 12:15 Last Admin: 03/11/19 12:02 Dose: 100 mls/hr Sodium Chloride (Normal Saline) 1,000 mls @ 125 mls/hr IV STAT [facility] Last Admin: 03/11/19 12:01 Dose: 125 mls/hr Piperacillin Sod/Tazobactam (Sod 4.5 gm/ Sodium Chloride) 100 mls @ 100 mls/hr IV Q8H [facility] Last Admin: 03/11/19 14:59 Dose: Not Given Iopamidol (Isovue Multipack-370 (76%)) 100 ml IVPUSH ONETIME STA Stop: 03/11/19 10:48 Last Admin: 03/11/19 10:53 Dose: 100 ml Ketorolac Tromethamine (Toradol) 30 mg IVPUSH ONETIME ONE Stop: 03/11/19 09:10 Last Admin: 03/11/19 09:26 Dose: 30 mg Morphine Sulfate (Morphine) 2 mg IVPUSH Q2H PRN PRN Reason: Pain (severe 7-10) Stop: 03/12/19 12:11 Ondansetron HCl (Zofran) 8 mg IVPUSH ONETIME ONE Stop: 03/11/19 09:10 Last Admin: 03/11/19 09:26 Dose: 8 mg - Exam General: Reports: Alert, Oriented, Cooperative, No Acute Distress Neck: Reports: Supple Lungs: Reports: Clear to Auscultation, Normal Respiratory Effort Cardiovascular: Reports: Regular Rate, Regular Rhythm GI/Abdominal Exam: Normal Bowel Sounds, Soft, Non-Tender, No Distention Extremities: Normal Inspection, Normal Range of Motion, Non-Tender, No Pedal Edema Neurological: Reports: No New Focal Deficit Psy/Mental Status: Reports: Alert, Normal Affect, Normal Mood <Shoaib Coffman - Last Filed: 03/13/19 10:23> Discharge Summary - Hospital Course Free Text/Narrative:: I have seen and examined the patient independently of Steffi Wood CNP. I have discussed the case with her. I have reviewed and agreed with the plan of treatment as outlined for this patient by her. Please see orders. - Discharge Diagnosis/Problem(s) (1) Diverticulitis of sigmoid colon SNOMED Code(s): 637190858 ICD Code: K57.32 - DVTRCLI OF LG INT W/O PERFORATION OR ABSCESS W/O BLEEDING Status: Acute Priority: High (2) Lesion of gingiva SNOMED Code(s): 690802850 ICD Code: K06.8 - OTH DISRD OF GINGIVA AND EDENTULOUS ALVEOLAR RIDGE Status : Chronic Priority: Medium (3) Smokeless tobacco use SNOMED Code(s): 530938981 ICD Code: Z72.0 - TOBACCO USE Status: Chronic Priority: Medium (4) Obesity (BMI 30-39.9) SNOMED Code(s): 585599561, 891642338 ICD Code: E66.9 - OBESITY, UNSPECIFIED Status: Chronic Priority: Medium - Patient Summary/Data Consults: Consultations 03/11/19 12:10 Consult to Physician [CONS] Routine - Patient Data Vitals - Most Recent: Last Vital Signs Temp 36.7 C 03/13/19 07:52 Pulse 60 03/13/19 07:52 Resp 16 03/13/19 07:52 BP 139/84 03/13/19 07:52 Pulse Ox 98 03/13/19 07:52 I&O - Last 24 hours: Intake & Output 03/12/19 03/13/19 03/13/19 22:59 06:59 14:59 Intake Total 3364 650 100 Output Total 930 1100 Balance 2434 -450 100 Lab Results - Last 24 hrs: Laboratory Results - last 24 hr 03/13/19 03/13/19 Range/Units 06:20 06:20 WBC 8.72 (4.0-11.0) K/uL RBC 4.29 L (4.50-5.90) M/uL Hgb 14.0 (13.0-17.0) g/dL Hct 40.0 (38.0-50.0) % MCV 93.2 (80.0-98.0) fL MCH 32.6 H (27.0-32.0) pg MCHC 35.0 (31.0-37.0) g/dL RDW Std Deviation 39.7 (28.0-62.0) fl RDW Coeff of Nayeli 12 (11.0-15.0) % Plt Count 240 (150-400) K/uL MPV 9.30 (7.40-12.00) fL Neut % (Auto) 58.4 (48.0-80.0) % Lymph % (Auto) 29.9 (16.0-40.0) % Monroe % (Auto) 8.3 (0.0-15.0) % Eos % (Auto) 3.2 (0.0-7.0) % Baso % (Auto) 0.2 (0.0-1.5) % Neut # (Auto) 5.1 (1.4-5.7) K/uL Lymph # (Auto) 2.6 H (0.6-2.4) K/uL Monroe # (Auto) 0.7 (0.0-0.8) K/uL Eos # (Auto) 0.3 (0.0-0.7) K/uL Baso # (Auto) 0.0 (0.0-0.1) K/uL Nucleated RBC % 0.0 /100WBC Nucleated RBCs # 0 K/uL Sodium 143 (136-148) mmol/L Potassium 4.2 (3.5-5.1) mmol/L Chloride 108 H (98-107) mmol/L Carbon Dioxide 27.3 (21.0-32.0) mmol/L BUN 13 (7.0-18.0) mg/dL Creatinine 1.0 (0.8-1.3) mg/dL Est Cr Clr Drug Dosing 104.43 mL/min Estimated GFR (MDRD) > 60.0 ml/min Glucose 86 (74-106) mg/dL Calcium 8.4 L (8.5-10.1) mg/dL [place] Results - Last 24 hrs: Microbiology 03/11/19 11:23 Urine Culture - Final Urine, Clean Catch MIXED PARVEZ 1,000-10,000 CFU/ML Med Orders - Current: Current Medications Discontinued Medications Acetaminophen (Tylenol) 650 mg PO Q4H PRN PRN Reason: Pain Last Admin: 03/12/19 17:35 Dose: 650 mg Heparin Sodium (Porcine) (Heparin Sodium) 5,000 units SUBCUT Q8H [facility] Last Admin: 03/13/19 04:00 Dose: 5,000 units Sodium Chloride (Normal Saline) 1,000 mls @ 999 mls/hr IV STAT ONE Stop: 03/11/19 10:09 Last Admin: 03/11/19 09:21 Dose: 999 mls/hr Metronidazole 500 mg/ Premix 100 mls @ 100 mls/hr IV ONETIME ONE Stop: 03/11/19 12:45 Last Admin: 03/11/19 12:45 Dose: 100 mls/hr Piperacillin Sod/Tazobactam (Sod 3.375 gm/ Sodium Chloride) 50 mls @ 100 mls/ hr IV ONETIME ONE Stop: 03/11/19 12:15 Last Admin: 03/11/19 12:02 Dose: 100 mls/hr Sodium Chloride (Normal Saline) 1,000 mls @ 125 mls/hr IV STAT [facility] Last Admin: 03/11/19 12:01 Dose: 125 mls/hr Metronidazole 500 mg/ Premix 100 mls @ 100 mls/hr IV QID [facility] Last Admin: 03/13/19 06:08 Dose: 100 mls/hr Piperacillin Sod/Tazobactam (Sod 4.5 gm/ Sodium Chloride) 100 mls @ 100 mls/hr IV Q8H [facility] Last Admin: 03/11/19 14:59 Dose: Not Given Sodium Chloride (Normal Saline) 1,000 mls @ 125 mls/hr IV ASDIRECTED [facility] Last Admin: 03/12/19 22:12 Dose: 125 mls/hr Piperacillin Sod/Tazobactam (Sod 4.5 gm/ Sodium Chloride) 100 mls @ 100 mls/hr IV Q8H [facility] Last Admin: 03/13/19 03:59 Dose: 100 mls/hr Iopamidol (Isovue Multipack-370 (76%)) 100 ml IVPUSH ONETIME STA Stop: 03/11/19 10:48 Last Admin: 03/11/19 10:53 Dose: 100 ml Ketorolac Tromethamine (Toradol) 30 mg IVPUSH ONETIME ONE Stop: 03/11/19 09:10 Last Admin: 03/11/19 09:26 Dose: 30 mg Ketorolac Tromethamine (Toradol) 30 mg IV Q6H PRN PRN Reason: Pain (moderate 4-6) Last Admin: 03/11/19 18:04 Dose: 30 mg Morphine Sulfate (Morphine) 2 mg IVPUSH Q2H PRN PRN Reason: Pain (severe 7-10) Stop: 03/12/19 12:11 Nicotine (Habitrol) 14 mg TRDERM DAILY [facility] Last Admin: 03/13/19 08:01 Dose: Not Given Ondansetron HCl (Zofran) 8 mg IVPUSH ONETIME ONE Stop: 03/11/19 09:10 Last Admin: 03/11/19 09:26 Dose: 8 mg Ondansetron HCl (Zofran) 4 mg IVPUSH Q6H PRN PRN Reason: Nausea/Vomiting
--- NOTE | 2019-03-13 09:39 | PCM.SURGPN ---
- General Info Date of Service: 03/13/19 Functional Status: Reports: Pain Controlled - Review of Systems Gastrointestinal: Reports: No Symptoms - Patient Data Vitals - Most Recent: Last Vital Signs Temp 98.0 F 03/13/19 07:52 Pulse 60 03/13/19 07:52 Resp 16 03/13/19 07:52 BP 139/84 03/13/19 07:52 Pulse Ox 98 03/13/19 07:52 Weight - Most Recent: 275 lb I&O - Last 24 Hours: Intake & Output 03/12/19 03/13/19 03/13/19 22:59 06:59 14:59 Intake Total 3364 650 100 Output Total 930 1100 Balance 2434 -450 100 Lab Results Last 24 Hrs: Laboratory Results - last 24 hr 03/13/19 03/13/19 Range/Units 06:20 06:20 WBC 8.72 (4.0-11.0) K/uL RBC 4.29 L (4.50-5.90) M/uL Hgb 14.0 (13.0-17.0) g/dL Hct 40.0 (38.0-50.0) % MCV 93.2 (80.0-98.0) fL MCH 32.6 H (27.0-32.0) pg MCHC 35.0 (31.0-37.0) g/dL RDW Std Deviation 39.7 (28.0-62.0) fl RDW Coeff of Nayeli 12 (11.0-15.0) % Plt Count 240 (150-400) K/uL MPV 9.30 (7.40-12.00) fL Neut % (Auto) 58.4 (48.0-80.0) % Lymph % (Auto) 29.9 (16.0-40.0) % Terry % (Auto) 8.3 (0.0-15.0) % Eos % (Auto) 3.2 (0.0-7.0) % Baso % (Auto) 0.2 (0.0-1.5) % Neut # (Auto) 5.1 (1.4-5.7) K/uL Lymph # (Auto) 2.6 H (0.6-2.4) K/uL Terry # (Auto) 0.7 (0.0-0.8) K/uL Eos # (Auto) 0.3 (0.0-0.7) K/uL Baso # (Auto) 0.0 (0.0-0.1) K/uL Nucleated RBC % 0.0 /100WBC Nucleated RBCs # 0 K/uL Sodium 143 (136-148) mmol/L Potassium 4.2 (3.5-5.1) mmol/L Chloride 108 H (98-107) mmol/L Carbon Dioxide 27.3 (21.0-32.0) mmol/L BUN 13 (7.0-18.0) mg/dL Creatinine 1.0 (0.8-1.3) mg/dL Est Cr Clr Drug Dosing 104.43 mL/min Estimated GFR (MDRD) > 60.0 ml/min Glucose 86 (74-106) mg/dL Calcium 8.4 L (8.5-10.1) mg/dL [place] Results Last 24 Hrs: Microbiology 03/11/19 11:23 Urine Culture - Final Urine, Clean Catch MIXED PARVEZ 1,000-10,000 CFU/ML Med Orders - Current: Current Medications Acetaminophen (Tylenol) 650 mg PO Q4H PRN PRN Reason: Pain Last Admin: 03/12/19 17:35 Dose: 650 mg Heparin Sodium (Porcine) (Heparin Sodium) 5,000 units SUBCUT Q8H [facility] Last Admin: 03/13/19 04:00 Dose: 5,000 units Metronidazole 500 mg/ Premix 100 mls @ 100 mls/hr IV QID [facility] Last Admin: 03/13/19 06:08 Dose: 100 mls/hr Sodium Chloride (Normal Saline) 1,000 mls @ 125 mls/hr IV ASDIRECTED [facility] Last Admin: 03/12/19 22:12 Dose: 125 mls/hr Piperacillin Sod/Tazobactam (Sod 4.5 gm/ Sodium Chloride) 100 mls @ 100 mls/hr IV Q8H [facility] Last Admin: 03/13/19 03:59 Dose: 100 mls/hr Ketorolac Tromethamine (Toradol) 30 mg IV Q6H PRN PRN Reason: Pain (moderate 4-6) Last Admin: 03/11/19 18:04 Dose: 30 mg Nicotine (Habitrol) 14 mg TRDERM DAILY [facility] Last Admin: 03/13/19 08:01 Dose: Not Given Ondansetron HCl (Zofran) 4 mg IVPUSH Q6H PRN PRN Reason: Nausea/Vomiting Discontinued Medications Sodium Chloride (Normal Saline) 1,000 mls @ 999 mls/hr IV STAT ONE Stop: 03/11/19 10:09 Last Admin: 03/11/19 09:21 Dose: 999 mls/hr Metronidazole 500 mg/ Premix 100 mls @ 100 mls/hr IV ONETIME ONE Stop: 03/11/19 12:45 Last Admin: 03/11/19 12:45 Dose: 100 mls/hr Piperacillin Sod/Tazobactam (Sod 3.375 gm/ Sodium Chloride) 50 mls @ 100 mls/ hr IV ONETIME ONE Stop: 03/11/19 12:15 Last Admin: 03/11/19 12:02 Dose: 100 mls/hr Sodium Chloride (Normal Saline) 1,000 mls @ 125 mls/hr IV STAT [facility] Last Admin: 03/11/19 12:01 Dose: 125 mls/hr Piperacillin Sod/Tazobactam (Sod 4.5 gm/ Sodium Chloride) 100 mls @ 100 mls/hr IV Q8H [facility] Last Admin: 03/11/19 14:59 Dose: Not Given Iopamidol (Isovue Multipack-370 (76%)) 100 ml IVPUSH ONETIME STA Stop: 03/11/19 10:48 Last Admin: 03/11/19 10:53 Dose: 100 ml Ketorolac Tromethamine (Toradol) 30 mg IVPUSH ONETIME ONE Stop: 03/11/19 09:10 Last Admin: 03/11/19 09:26 Dose: 30 mg Morphine Sulfate (Morphine) 2 mg IVPUSH Q2H PRN PRN Reason: Pain (severe 7-10) Stop: 03/12/19 12:11 Ondansetron HCl (Zofran) 8 mg IVPUSH ONETIME ONE Stop: 03/11/19 09:10 Last Admin: 03/11/19 09:26 Dose: 8 mg - Exam GI/Abdominal Exam: Normal Bowel Sounds, Soft, Non-Tender, No Distention - Problem List Review Problem List Initiated/Reviewed/Updated: Yes - My Orders Last 24 Hours: Active Orders 24 hr Category Date Time Status Ready for Discharge [RC] PER UNIT ROUTINE Care 03/13/19 08:29 Active Acetaminophen [Tylenol] Med 03/12/19 09:04 Active 650 mg PO Q4H PRN Medication Orders Acetaminophen (Tylenol) 650 mg PO Q4H PRN PRN Reason: Pain Last Admin: 03/12/19 17:35 Dose: 650 mg Heparin Sodium (Porcine) (Heparin Sodium) 5,000 units SUBCUT Q8H [facility] Last Admin: 03/13/19 04:00 Dose: 5,000 units Admin: 03/12/19 20:28 Dose: 5,000 units Admin: 03/12/19 11:27 Dose: 5,000 units Admin: 03/12/19 03:54 Dose: 5,000 units Admin: 03/11/19 19:54 Dose: 5,000 units Admin: 03/11/19 13:24 Dose: 5,000 units Metronidazole 500 mg/ Premix 100 mls @ 100 mls/hr IV QID [facility] Last Admin: 03/13/19 06:08 Dose: 100 mls/hr Infusion: 03/13/19 01:06 Dose: 100 mls/hr Admin: 03/13/19 00:06 Dose: 100 mls/hr Infusion: 03/12/19 18:36 Dose: 100 mls/hr Admin: 03/12/19 17:36 Dose: 100 mls/hr Infusion: 03/12/19 14:07 Dose: 100 mls/hr Admin: 03/12/19 13:07 Dose: 100 mls/hr Infusion: 03/12/19 06:50 Dose: 100 mls/hr Admin: 03/12/19 05:50 Dose: 100 mls/hr Infusion: 03/12/19 01:03 Dose: 100 mls/hr Admin: 03/12/19 00:03 Dose: 100 mls/hr Infusion: 03/11/19 18:53 Dose: 100 mls/hr Admin: 03/11/19 17:53 Dose: 100 mls/hr Sodium Chloride (Normal Saline) 1,000 mls @ 125 mls/hr IV ASDIRECTED [facility] Last Admin: 03/12/19 22:12 Dose: 125 mls/hr Infusion: 03/12/19 17:46 Dose: 125 mls/hr Admin: 03/12/19 09:46 Dose: 125 mls/hr Infusion: 03/12/19 07:20 Dose: 125 mls/hr Admin: 03/11/19 23:20 Dose: 125 mls/hr Piperacillin Sod/Tazobactam (Sod 4.5 gm/ Sodium Chloride) 100 mls @ 100 mls/hr IV Q8H [facility] Last Admin: 03/13/19 03:59 Dose: 100 mls/hr Infusion: 03/12/19 20:43 Dose: 100 mls/hr Admin: 03/12/19 19:43 Dose: 100 mls/hr Infusion: 03/12/19 12:52 Dose: 100 mls/hr Admin: 03/12/19 11:52 Dose: 100 mls/hr Infusion: 03/12/19 04:55 Dose: 100 mls/hr Admin: 03/12/19 03:55 Dose: 100 mls/hr Infusion: 03/11/19 20:53 Dose: 100 mls/hr Admin: 03/11/19 19:53 Dose: 100 mls/hr Ketorolac Tromethamine (Toradol) 30 mg IV Q6H PRN PRN Reason: Pain (moderate 4-6) Last Admin: 03/11/19 18:04 Dose: 30 mg Nicotine (Habitrol) 14 mg TRDERM DAILY [facility] Last Admin: 03/13/19 08:01 Dose: Not Given Admin: 03/12/19 08:36 Dose: 14 mg Admin: 03/11/19 13:24 Dose: 14 mg Ondansetron HCl (Zofran) 4 mg IVPUSH Q6H PRN PRN Reason: Nausea/Vomiting - Assessment Assessment (Free Text/Narrative):: doing super well; pain completely resolved; agree with home this morning on low fibre diet X 3 mos, colonoscopy in 2 mos, abx treatment for a total of 3 wks; thks for the consult and care of this pleasent gentleman - Plan Plan (Free Text/Narrative):: doing super well; pain completely resolved; agree with home this morning on low fibre diet X 3 mos, colonoscopy in 2 mos, abx treatment for a total of 3 wks; thks for the consult and care of this pleasent gentleman
== END 2019-03-13 09:55 | disposition home or self-care (01) | DRG 244 ==
LOC: MW.ED 09:06 → MW.MS 12:02
PROVIDERS: ADMIT Internal Medicine; ATTEND Internal Medicine
DX: K57.20 Diverticulitis of large intestine with perforation and abscess without bleeding (principal); E66.01 Morbid (severe) obesity due to excess calories; K06.8 Other specified disorders of gingiva and edentulous alveolar ridge; F17.220 Nicotine dependence, chewing tobacco, uncomplicated; Z68.39 Body mass index [BMI] 39.0-39.9, adult
CPT/HCPCS: 36415; 74177; 74177-26; 80048; 80053; 81001; 83690; 84484; 85025; 87086; 96361; 96365; 96375; 99283; 99285-25; A9270-GY; J1644; J1885; J2405; J2543; J3490; J7030; J7040; J7050; Q9967

== ENCOUNTER 2019-04-28 02:34 | Inpatient (IN) | payer BC ==
[2019-04-28] MEDS ORDERED: Sodium Chloride 0.9% 1,000 ML IV ONE (02:39)
--- NOTE | 2019-04-28 02:43 | EDM.PDOC ---
ED HPI GENERAL MEDICAL PROBLEM - General Chief Complaint: Abdominal Pain Stated Complaint: DIVERTICULITIS Time Seen by Provider: 04/28/19 02:37 - History of Present Illness INITIAL COMMENTS - FREE TEXT/NARRATIVE: HISTORY AND PHYSICAL: History of present illness: Patient 39-year-old male presents with concern of left lower quadrant abdominal pain patient's history diverticulitis and was scheduled for colonoscopy the of this month. He denies fever chills nausea vomiting he states is similar to his prior episode of diverticulitis. Review of systems: As per history of present illness and below otherwise all systems reviewed and negative. Past medical history: As per history of present illness and as reviewed below otherwise noncontributory. Surgical history: As per history of present illness and as reviewed below otherwise noncontributory. Social history: No reported history of drug or alcohol abuse. Family history: As per history of present illness and as reviewed below otherwise noncontributory. Physical exam: HEENT: Atraumatic, normocephalic, pupils reactive, negative for conjunctival pallor or scleral icterus, mucous membranes moist, throat clear, neck supple, nontender, trachea midline. Lungs: Clear to auscultation, breath sounds equal bilaterally, chest nontender. Heart: S1S2, regular, negative for clicks, rubs, or JVD. Abdomen: Soft, nondistended, tenderness in left lower quadrant to deep palpation. Negative for masses or hepatosplenomegaly. Negative for costovertebral tenderness. Pelvis: Stable nontender. Genitourinary: Deferred. Rectal: Deferred. Extremities: Atraumatic, negative for cords or calf pain. Neurovascular unremarkable. Neuro: Awake, alert, oriented. Cranial nerves II through XII unremarkable. Cerebellum unremarkable. Motor and sensory unremarkable throughout. Exam nonfocal. Diagnostics: CBC CMP lipase UA CT abdomen and pelvis with IV contrast Therapeutics: Saline 1 L bolus Dilaudid 1 mg IV Zofran 4 mg IV Impression: #1 acute left lower quadrant abdominal pain #2 history of sigmoid diverticulitis Definitive disposition and diagnosis as appropriate pending reevaluation and review of above. - Related Data Allergies Allergy/AdvReac Type Severity Reaction Status Date / Time No Known Allergies Allergy Verified 04/28/19 02:40 Home Meds: Home Meds . [No Known Home Meds] 04/28/19 [History] Past Medical History - Past Health History Medical/Surgical History: Denies Medical/Surgical History HEENT History: Reports: None Cardiovascular History: Reports: None Respiratory History: Reports: None Gastrointestinal History: Reports: Diverticulosis Genitourinary History: Reports: None Musculoskeletal History: Reports: None Neurological History: Reports: None Psychiatric History: Reports: None Endocrine/Metabolic History: Reports: None Hematologic History: Reports: None Immunologic History: Reports: None Oncologic (Cancer) History: Reports: None Dermatologic History: Reports: None - Infectious Disease History Infectious Disease History: Reports: None Social & Family History - Family History Family Medical History: Noncontributory - Caffeine Use Caffeine Use: Reports: None - Living Situation & Occupation Living situation: Reports: Single Occupation: Employed ED ROS GENERAL - Review of Systems Review Of Systems: ROS reveals no pertinent complaints other than HPI. ED EXAM, GENERAL - Physical Exam Exam: See Below (See dictation) Course - Vital Signs Last Recorded V/S: Last Vital Signs Temp 36.2 C 04/28/19 02:41 Pulse 67 04/28/19 02:41 Resp 22 H 04/28/19 02:41 BP 132/87 04/28/19 02:41 Pulse Ox 96 04/28/19 02:41 - Orders/Labs/Meds Orders: Active Orders 24 hr Category Date Time Status UA RFX [place] AND CULT IF INDIC [URIN] Stat Lab 04/28/19 02:38 Ordered Levofloxacin/Dextrose 5%-Water [Levaquin in D5W 750 MG/ Med 04/28/19 03:36 Active 150 ML] 750 mg Premix Bag 1 bag IV ONETIME Medication Orders Levofloxacin/Dextrose 750 mg/ (Premix) 150 mls @ 100 mls/hr IV ONETIME ONE Stop: 04/28/19 05:05 Labs: Laboratory Tests 04/28/19 04/28/19 Range/Units 02:55 02:55 WBC 12.24 H (4.0-11.0) K/uL RBC 4.59 (4.50-5.90) M/uL Hgb 14.7 (13.0-17.0) g/dL Hct 43.9 (38.0-50.0) % MCV 95.6 (80.0-98.0) fL MCH 32.0 (27.0-32.0) pg MCHC 33.5 (31.0-37.0) g/dL RDW Std Deviation 41.8 (28.0-62.0) fl RDW Coeff of Nayeli 12 (11.0-15.0) % Plt Count 231 (150-400) K/uL MPV 9.40 (7.40-12.00) fL Neut % (Auto) 63.2 (48.0-80.0) % Lymph % (Auto) 25.2 (16.0-40.0) % [place] % (Auto) 7.9 (0.0-15.0) % Eos % (Auto) 3.5 (0.0-7.0) % Baso % (Auto) 0.2 (0.0-1.5) % Neut # (Auto) 7.7 H (1.4-5.7) K/uL Lymph # (Auto) 3.1 H (0.6-2.4) K/uL [place] # (Auto) 1.0 H (0.0-0.8) K/uL Eos # (Auto) 0.4 (0.0-0.7) K/uL Baso # (Auto) 0.0 (0.0-0.1) K/uL Nucleated RBC % 0.0 /100WBC Nucleated RBCs # 0 K/uL Sodium 141 (136-148) mmol/L Potassium 4.2 (3.5-5.1) mmol/L Chloride 107 (98-107) mmol/L Carbon Dioxide 26.8 (21.0-32.0) mmol/L BUN 16 (7.0-18.0) mg/dL Creatinine 0.9 (0.8-1.3) mg/dL Est Cr Clr Drug Dosing 114.91 mL/min Estimated GFR (MDRD) > 60.0 ml/min Glucose 140 H (74-106) mg/dL Calcium 8.5 (8.5-10.1) mg/dL Total Bilirubin 1.1 H (0.2-1.0) mg/dL AST 29 (15-37) IU/L ALT 68 H (14-63) IU/L Alkaline Phosphatase 62 (46-116) U/L Total Protein 7.0 (6.4-8.2) g/dL Albumin 3.5 (3.4-5.0) g/dL Globulin 3.5 (2.6-4.0) g/dL Albumin/Globulin Ratio 1.0 (0.9-1.6) Lipase 125 (73-393) U/L Meds: Medications Generic Name Dose Route Start Last Admin Trade Name Freq PRN Reason Stop Dose Admin Levofloxacin/Dextrose 750 mg/ 150 mls @ 100 mls/hr 04/28/19 03:36 Premix IV 04/28/19 05:05 ONETIME ONE Discontinued Medications Generic Name Dose Route Start Last Admin Trade Name Freq PRN Reason Stop Dose Admin Hydromorphone HCl 1 mg 04/28/19 02:47 04/28/19 02:55 Dilaudid IVPUSH 04/28/19 02:48 1 mg ONETIME ONE Administration Sodium Chloride 1,000 mls @ 999 mls/hr 04/28/19 02:39 04/28/19 02:48 Normal Saline IV 04/28/19 03:39 999 mls/hr STAT ONE Administration Metronidazole 500 mg/ Premix 100 mls @ 100 mls/hr 04/28/19 03:36 04/28/19 04: 04 IV 04/28/19 04:35 100 mls/hr ONETIME ONE Administration Iopamidol 100 ml 04/28/19 03:59 04/28/19 03:59 Isovue Multipack-370 (76%) IVPUSH 04/28/19 04:00 100 ml ONETIME ONE Administration Ondansetron HCl 4 mg 04/28/19 02:47 04/28/19 02:54 Zofran IVPUSH 04/28/19 02:48 4 mg ONETIME ONE Administration Departure - Departure Time of Disposition: 02:43 Disposition: Refer to Observation Condition: Good Clinical Impression: Abdominal pain, Diverticulitis - Discharge Information Referrals: PCP,None [Primary Care Provider] - Forms: ED Department Discharge - My Orders Last 24 Hours: My Active Orders 04/28/19 02:38 UA RFX [place] AND CULT IF INDIC [URIN] Stat 04/28/19 03:36 Levofloxacin/Dextrose 5%-Water [Levaquin in D5W 750 MG/150 ML] 750 mg Premix Bag 1 bag IV ONETIME - Assessment/Plan Last 24 Hours: My Active Orders 04/28/19 02:38 UA RFX [place] AND CULT IF INDIC [URIN] Stat 04/28/19 03:36 Levofloxacin/Dextrose 5%-Water [Levaquin in D5W 750 MG/150 ML] 750 mg Premix Bag 1 bag IV ONETIME
[2019-04-28] MEDS ORDERED: Ondansetron 4 MG/2 ML SDV IVPUSH ONE (02:47)
[2019-04-28] MEDS ORDERED: HYDROmorphone 1 MG/ML Syringe IVPUSH ONE (02:47)
[2019-04-28 03:22] LABS: CHLORIDE,CL 107 mmol/L (98-107); SODIUM,NA 141 mmol/L (136-148)
[2019-04-28] MEDS ORDERED: Levofloxacin/Dextrose 5%-Water 750 MG in Premix Bag 1 BAG IV ONE (03:36)
[2019-04-28] MEDS ORDERED: metroNIDAZOLE/Normal Saline 500 MG in Premix Bag 1 BAG IV ONE (03:36)
[2019-04-28] MEDS ORDERED: Iopamidol 755 MG/ML 500 ML Multipack Bottle IVPUSH ONE (03:59)
--- NOTE | 2019-04-28 04:26 | CT ---
INDICATION: Left sided abdominal pain TECHNIQUE: CT Abdomen and pelvis with i.v. contrast. Coronal and sagittal reformats were obtained. CONTRAST: 100 mL Isovue 370 COMPARISON: 03/11/2019 FINDINGS: Lower chest: Unremarkable. Liver: Unremarkable. Spleen: Unremarkable. Pancreas: Unremarkable. Gallbladder: Unremarkable. Kidney: There is a 2 mm stone present in the upper pole of the right kidney. Small bilateral cortical cysts are present. Adrenal: Unremarkable. Bowel: Moderate wall thickening with severe surrounding inflammatory changes are present at the junction of the descending and sigmoid colon with scattered diverticulosis. The appendix is normal in appearance and size. A stable small fat containing periumbilical hernia is present. Vascular: Unremarkable. Lymph: Unremarkable. Peritoneum: Unremarkable. No pneumoperitoneum is seen. No significant ascites is noted. Pelvis: Unremarkable. Soft tissue: Unremarkable. Bone: Unremarkable for age. IMPRESSION: 1. Moderate wall thickening with severe surrounding inflammatory changes are present at the junction of the descending and sigmoid colon with scattered diverticulosis. Findings are consistent with acute diverticulitis. Dictated by Isaac Duque MD @ 04/28/2019 4:24:26 AM Please note that all CT scans at this facility use dose modulation, iterative reconstruction, and/or weight-based dosing when appropriate to reduce radiation dose to as low as reasonably achievable. Dictated by: Isaac Duque MD @ 04/28/2019 04:24:32 (Electronically Signed)
[2019-04-28] MEDS: HYDROmorphone 1 MG/ML Syringe IVPUSH PRN ×3 (06:43→23:13)
[2019-04-28] MEDS: Sodium Chloride 0.9% 1,000 ML IV SCH ×3 (06:43→23:10)
[2019-04-28] MEDS: metroNIDAZOLE/Normal Saline 500 MG in Premix Bag 1 BAG IV SCH ×4 (09:30→23:11)
--- NOTE | 2019-04-28 13:35 | PCM.HP ---
H&P History of Present Illness - General Date of Service: 04/28/19 Admit Problem/Dx: Admission Diagnosis/Problem Admission Diagnosis/Problem Diverticulitis - History of Present Illness Initial Comments - Free Text/Narative: 39 yo male with pmh of diverticulitis who presents with one day history of sharp left lower quadrant pain. He denies any diarrhea, blood in stool, fevers , nausea or vomiting. CT scan of abdomen was suggestive of diverticulitis. WBC was 12,240. He was admitted last month for diverticulitis. He was scedulated for a colonoscopy on May [address] Enriquez. Left Lower Abdominal Pain Score (Numeric/FACES): 5 - Related Data Allergies/Adverse Reactions: Allergies Allergy/AdvReac Type Severity Reaction Status Date / Time No Known Allergies Allergy Verified 04/28/19 02:40 Home Medications: Home Meds . [No Known Home Meds] 04/28/19 [History] Past Medical History - Past Health History Medical/Surgical History: Denies Medical/Surgical History HEENT History: Reports: None Cardiovascular History: Reports: None Respiratory History: Reports: None Gastrointestinal History: Reports: Diverticulosis Genitourinary History: Reports: None Musculoskeletal History: Reports: None Neurological History: Reports: None Psychiatric History: Reports: None Endocrine/Metabolic History: Reports: None Hematologic History: Reports: None Immunologic History: Reports: None Oncologic (Cancer) History: Reports: None Dermatologic History: Reports: None - Infectious Disease History Infectious Disease History: Reports: None Social & Family History - Family History Family Medical History: Noncontributory - Tobacco Use Smoking Status *Q: Heavy Tobacco Smoker Years of Tobacco use: 7 Packs/Tins Daily: 10 Used Tobacco, but Quit: No - Caffeine Use Caffeine Use: Reports: Coffee - Recreational Drug Use Recreational Drug Use: No - Living Situation & Occupation Living situation: Reports: Single Occupation: Employed H&P Review of Systems - Review of Systems: Review Of Systems: ROS reveals no pertinent complaints other than HPI. Exam - Exam Exam: See Below - Vital Signs Vital Signs: Last Vital Signs Temp 36.1 C 04/28/19 12:00 Pulse 52 L 04/28/19 12:00 Resp 18 04/28/19 12:00 BP 120/57 L 04/28/19 12:00 Pulse Ox 91 L 04/28/19 12:00 Weight: 128.055 kg - Exam General: Alert, Oriented HEENT: Mucosa Moist & [place] Lungs: Clear to Auscultation, Normal Respiratory Effort Cardiovascular: Regular Rate, Regular Rhythm GI/Abdominal Exam: Normal Bowel Sounds, Soft, Non-Tender, No Distention Extremities: Non-Tender, No Pedal Edema Skin: Warm, Dry, Intact - Patient Data Lab Results Last 24 hrs: Laboratory Results - last 24 hr 04/28/19 04/28/19 Range/Units 02:55 02:55 WBC 12.24 H (4.0-11.0) K/uL RBC 4.59 (4.50-5.90) M/uL Hgb 14.7 (13.0-17.0) g/dL Hct 43.9 (38.0-50.0) % MCV 95.6 (80.0-98.0) fL MCH 32.0 (27.0-32.0) pg MCHC 33.5 (31.0-37.0) g/dL RDW Std Deviation 41.8 (28.0-62.0) fl RDW Coeff of Nayeli 12 (11.0-15.0) % Plt Count 231 (150-400) K/uL MPV 9.40 (7.40-12.00) fL Neut % (Auto) 63.2 (48.0-80.0) % Lymph % (Auto) 25.2 (16.0-40.0) % [place] % (Auto) 7.9 (0.0-15.0) % Eos % (Auto) 3.5 (0.0-7.0) % Baso % (Auto) 0.2 (0.0-1.5) % Neut # (Auto) 7.7 H (1.4-5.7) K/uL Lymph # (Auto) 3.1 H (0.6-2.4) K/uL [place] # (Auto) 1.0 H (0.0-0.8) K/uL Eos # (Auto) 0.4 (0.0-0.7) K/uL Baso # (Auto) 0.0 (0.0-0.1) K/uL Nucleated RBC % 0.0 /100WBC Nucleated RBCs # 0 K/uL Sodium 141 (136-148) mmol/L Potassium 4.2 (3.5-5.1) mmol/L Chloride 107 (98-107) mmol/L Carbon Dioxide 26.8 (21.0-32.0) mmol/L BUN 16 (7.0-18.0) mg/dL Creatinine 0.9 (0.8-1.3) mg/dL Est Cr Clr Drug Dosing 114.91 mL/min Estimated GFR (MDRD) > 60.0 ml/min Glucose 140 H (74-106) mg/dL Calcium 8.5 (8.5-10.1) mg/dL Total Bilirubin 1.1 H (0.2-1.0) mg/dL AST 29 (15-37) IU/L ALT 68 H (14-63) IU/L Alkaline Phosphatase 62 (46-116) U/L Total Protein 7.0 (6.4-8.2) g/dL Albumin 3.5 (3.4-5.0) g/dL Globulin 3.5 (2.6-4.0) g/dL Albumin/Globulin Ratio 1.0 (0.9-1.6) Lipase 125 (73-393) U/L Result Diagrams: 04/29/19 06:11 04/29/19 06:11 Problem List Initiated/Reviewed/Updated: Yes Orders Last 24hrs: Active Orders 24 hr Category Date Time Status Patient Status [ADT] Stat ADT 04/28/19 04:53 Active Antiembolic Devices [RC] PER UNIT ROUTINE Care 04/28/19 13:30 Active Oxygen Therapy [RC] PRN Care 04/28/19 13:30 Active Up ad Mehnaz [RC] ASDIRECTED Care 04/28/19 13:30 Active VTE/DVT Education [RC] PER UNIT ROUTINE Care 04/28/19 13:30 Active Vital Signs [RC] Q4H Care 04/28/19 13:30 Active Clear Liquid Diet [DIET] Diet 04/28/19 Breakfast Active CBC WITH AUTO DIFF [HEME] AM Lab 04/29/19 05:11 Ordered COMPREHENSIVE METABOLIC PN,CMP [CHEM] AM Lab 04/29/19 05:11 Ordered UA RFX [place] AND CULT IF INDIC [URIN] Routine Lab 04/28/19 07:00 Ordered UA RFX [place] AND CULT IF INDIC [URIN] Stat Lab 04/28/19 02:38 Ordered HYDROmorphone [Dilaudid] Med 06/01/19 06:11 Active 1 mg IVPUSH Q3H PRN Levofloxacin/Dextrose 5%-Water [Levaquin in D5W 750 MG/ Med 04/29/19 05:00 Active 150 ML] 750 mg Premix Bag 1 bag IV Q24H Ondansetron [Zofran] Med 04/28/19 06:11 Active 4 mg IVPUSH Q4H PRN Sodium Chloride 0.9% [Normal Saline] 1,000 ml Med 04/28/19 06:15 Active IV ASDIRECTED metroNIDAZOLE/Normal Saline [Flagyl 500 MG in NS 100 ML Med 04/28/19 10:00 Active ] 500 mg Premix Bag 1 bag IV Q6HR Sequential Compression Device [OM.PC] Per Unit Routine Oth 04/28/19 13:30 Ordered Resuscitation Status Routine Resus Stat 04/28/19 13:30 Ordered Medication Orders Hydromorphone HCl (Dilaudid) 1 mg IVPUSH Q3H PRN PRN Reason: Pain Last Admin: 04/28/19 11:12 Dose: 1 mg Admin: 04/28/19 06:43 Dose: 1 mg Levofloxacin/Dextrose 750 mg/ (Premix) 150 mls @ 100 mls/hr IV Q24H LIDIA Sodium Chloride (Normal Saline) 1,000 mls @ 125 mls/hr IV ASDIRECTED LIDIA Last Admin: 04/28/19 06:43 Dose: 125 mls/hr Metronidazole 500 mg/ Premix 100 mls @ 100 mls/hr IV Q6HR LIDIA Last Admin: 04/28/19 09:30 Dose: 100 mls/hr Ondansetron HCl (Zofran) 4 mg IVPUSH Q4H PRN PRN Reason: Nausea/Vomiting Assessment/Plan Comment:: 39 yo male admitted with acute diverticulitis. We will treat with IV fluids, Levaquin and Flagyl. Will keep to clear liquids.
[2019-04-28] MEDS: Ondansetron 4 MG/2 ML SDV IVPUSH PRN (19:54)
[2019-04-29] MEDS: Levofloxacin/Dextrose 5%-Water 750 MG in Premix Bag 1 BAG IV SCH (05:21)
[2019-04-29] MEDS: metroNIDAZOLE/Normal Saline 500 MG in Premix Bag 1 BAG IV SCH ×3 (06:42→18:37)
[2019-04-29 06:57] LABS: CHLORIDE,CL 107 mmol/L (98-107); SODIUM,NA 140 mmol/L (136-148)
[2019-04-29] MEDS: HYDROmorphone 1 MG/ML Syringe IVPUSH PRN ×2 (09:11→21:50)
[2019-04-29] MEDS: Sodium Chloride 0.9% 1,000 ML IV SCH ×2 (10:11→21:50)
--- NOTE | 2019-04-29 16:51 | PCM.PN ---
- General Info Date of Service: 04/29/19 - Review of Systems Systems Review Comment:: abdominal pain controlled - Patient Data Vitals - Most Recent: Last Vital Signs Temp 36.3 C 04/29/19 12:00 Pulse 51 L 04/29/19 15:56 Resp 18 04/29/19 12:00 BP 114/57 L 04/29/19 12:00 Pulse Ox 96 04/29/19 12:00 Weight - Most Recent: 128.055 kg Lab Results Last 24 Hours: Laboratory Results - last 24 hr 04/29/19 04/29/19 04/29/19 Range/Units 05:45 06:11 06:11 WBC 10.20 (4.0-11.0) K/uL RBC 4.23 L (4.50-5.90) M/uL Hgb 13.5 (13.0-17.0) g/dL Hct 40.4 (38.0-50.0) % MCV 95.5 (80.0-98.0) fL MCH 31.9 (27.0-32.0) pg MCHC 33.4 (31.0-37.0) g/dL RDW Std Deviation 41.2 (28.0-62.0) fl RDW Coeff of Nayeli 12 (11.0-15.0) % Plt Count 214 (150-400) K/uL MPV 9.70 (7.40-12.00) fL Neut % (Auto) 65.4 (48.0-80.0) % Lymph % (Auto) 22.9 (16.0-40.0) % [place] % (Auto) 9.4 (0.0-15.0) % Eos % (Auto) 2.2 (0.0-7.0) % Baso % (Auto) 0.1 (0.0-1.5) % Neut # (Auto) 6.7 H (1.4-5.7) K/uL Lymph # (Auto) 2.3 (0.6-2.4) K/uL [place] # (Auto) 1.0 H (0.0-0.8) K/uL Eos # (Auto) 0.2 (0.0-0.7) K/uL Baso # (Auto) 0.0 (0.0-0.1) K/uL Nucleated RBC % 0.0 /100WBC Nucleated RBCs # 0 K/uL Sodium 140 (136-148) mmol/L Potassium 4.3 (3.5-5.1) mmol/L Chloride 107 (98-107) mmol/L Carbon Dioxide 25.3 (21.0-32.0) mmol/L BUN 14 (7.0-18.0) mg/dL Creatinine 0.8 (0.8-1.3) mg/dL Est Cr Clr Drug Dosing 129.27 mL/min Estimated GFR (MDRD) > 60.0 ml/min Glucose 107 H (74-106) mg/dL Calcium 8.6 (8.5-10.1) mg/dL Total Bilirubin 1.5 H (0.2-1.0) mg/dL AST 29 (15-37) IU/L ALT 61 (14-63) IU/L Alkaline Phosphatase 46 (46-116) U/L Total Protein 6.4 (6.4-8.2) g/dL Albumin 3.0 L (3.4-5.0) g/dL Globulin 3.4 (2.6-4.0) g/dL Albumin/Globulin Ratio 0.9 (0.9-1.6) Urine Color DARK YELLOW Urine Appearance SLT CLOUDY Urine pH 5.0 (5.0-8.0) Ur Specific [place] >= 1.030 (1.001-1.035) Urine Protein NEGATIVE (NEGATIVE) mg/dL Urine Glucose (UA) NEGATIVE (NEGATIVE) mg/dL Urine Ketones NEGATIVE (NEGATIVE) mg/dL Urine Occult Blood NEGATIVE (NEGATIVE) Urine Nitrite NEGATIVE (NEGATIVE) Urine Bilirubin NEGATIVE (NEGATIVE) Urine Urobilinogen 0.2 (<2.0) EU/dL Ur Leukocyte Esterase NEGATIVE (NEGATIVE) Med Orders - Current: Current Medications Hydromorphone HCl (Dilaudid) 1 mg IVPUSH Q3H PRN PRN Reason: Pain Last Admin: 04/29/19 09:11 Dose: 1 mg Levofloxacin/Dextrose 750 mg/ (Premix) 150 mls @ 100 mls/hr IV Q24H [facility] Last Admin: 04/29/19 05:21 Dose: 100 mls/hr Sodium Chloride (Normal Saline) 1,000 mls @ 125 mls/hr IV ASDIRECTED [facility] Last Admin: 04/29/19 10:11 Dose: 125 mls/hr Metronidazole 500 mg/ Premix 100 mls @ 100 mls/hr IV Q6HR LIDIA Last Admin: 04/29/19 11:30 Dose: 100 mls/hr Ondansetron HCl (Zofran) 4 mg IVPUSH Q4H PRN PRN Reason: Nausea/Vomiting Last Admin: 04/28/19 19:54 Dose: 4 mg Discontinued Medications Hydromorphone HCl (Dilaudid) 1 mg IVPUSH ONETIME ONE Stop: 04/28/19 02:48 Last Admin: 04/28/19 02:55 Dose: 1 mg Sodium Chloride (Normal Saline) 1,000 mls @ 999 mls/hr IV STAT ONE Stop: 04/28/19 03:39 Last Admin: 04/28/19 02:48 Dose: 999 mls/hr Levofloxacin/Dextrose 750 mg/ (Premix) 150 mls @ 100 mls/hr IV ONETIME ONE Stop: 04/28/19 05:05 Last Admin: 04/28/19 04:55 Dose: 100 mls/hr Metronidazole 500 mg/ Premix 100 mls @ 100 mls/hr IV ONETIME ONE Stop: 04/28/19 04:35 Last Admin: 04/28/19 04:04 Dose: 100 mls/hr Metronidazole 500 mg/ Premix 100 mls @ 100 mls/hr IV Q6HR [facility] Last Admin: 04/28/19 14:38 Dose: Not Given Iopamidol (Isovue Multipack-370 (76%)) 100 ml IVPUSH ONETIME ONE Stop: 04/28/19 04:00 Last Admin: 04/28/19 03:59 Dose: 100 ml Ondansetron HCl (Zofran) 4 mg IVPUSH ONETIME ONE Stop: 04/28/19 02:48 Last Admin: 04/28/19 02:54 Dose: 4 mg - Exam General: Alert, Oriented Lungs: Clear to Auscultation, Normal Respiratory Effort Cardiovascular: Regular Rate, Regular Rhythm GI/Abdominal Exam: Normal Bowel Sounds, Soft, Non-Tender, No Distention Extremities: Non-Tender, No Pedal Edema Skin: Warm, Dry, Intact Neurological: No New Focal Deficit - Problem List Review Problem List Initiated/Reviewed/Updated: Yes - My Orders Last 24 Hours: My Active Orders 04/28/19 17:00 metroNIDAZOLE/Normal Saline [Flagyl 500 MG in NS 100 ML] 500 mg Premix Bag 1 bag IV Q6HR 04/29/19 05:00 Levofloxacin/Dextrose 5%-Water [Levaquin in D5W 750 MG/150 ML] 750 mg Premix Bag 1 bag IV Q24H 04/30/19 05:11 BASIC METABOLIC PANEL,BMP [CHEM] AM CBC WITH AUTO DIFF [HEME] AM - Plan Plan:: 39 yo male admitted with acute diverticulitis. We will continue, Levaquin and Flagyl. We will keep with clears today. I anticipate discharge home tomorrow.
[2019-04-30] MEDS: metroNIDAZOLE/Normal Saline 500 MG in Premix Bag 1 BAG IV SCH ×4 (00:04→17:23)
[2019-04-30] MEDS: Levofloxacin/Dextrose 5%-Water 750 MG in Premix Bag 1 BAG IV SCH (04:28)
[2019-04-30] MEDS: Ondansetron 4 MG/2 ML SDV IVPUSH PRN (06:02)
[2019-04-30 07:47] LABS: CHLORIDE,CL 106 mmol/L (98-107); SODIUM,NA 139 mmol/L (136-148)
[2019-04-30] MEDS: Sodium Chloride 0.9% 1,000 ML IV SCH ×2 (10:00→19:51)
--- NOTE | 2019-04-30 19:58 | PCM.PN ---
- General Info Date of Service: 04/30/19 Admission Dx/Problem (Free Text): Admission Diagnosis/Problem Admission Diagnosis/Problem Diverticulitis Subjective Update: Continuing to have pain and nausea this morning. No chest pain. No emesis. passing gas, no BM today. Functional Status: Reports: Ambulating, Urinating. Denies: Pain Controlled, Tolerating Diet - Review of Systems General: Reports: No Symptoms. Denies: Fever, Weakness, Fatigue HEENT: Reports: No Symptoms Pulmonary: Reports: No Symptoms. Denies: Shortness of Breath Cardiovascular: Reports: No Symptoms. Denies: Chest Pain Gastrointestinal: Reports: Abdominal Pain (LLQ), Decreased Appetite, Nausea Genitourinary: Reports: No Symptoms. Denies: Dysuria, Frequency Musculoskeletal: Reports: No Symptoms Skin: Reports: No Symptoms Neurological: Reports: No Symptoms - Patient Data Vitals - Most Recent: Last Vital Signs Temp 97.5 F 04/30/19 16:00 Pulse 46 L 04/30/19 16:00 Resp 18 04/30/19 16:00 BP 130/76 04/30/19 16:00 Pulse Ox 96 04/30/19 16:00 Weight - Most Recent: 128.055 kg I&O - Last 24 Hours: Intake & Output 04/30/19 04/30/19 04/30/19 06:59 14:59 22:59 Intake Total 300 1119 Output Total 600 2250 Balance -300 -1131 Lab Results Last 24 Hours: Laboratory Results - last 24 hr 04/30/19 04/30/19 Range/Units 07:10 07:10 WBC 8.84 (4.0-11.0) K/uL RBC 4.11 L (4.50-5.90) M/uL Hgb 13.2 (13.0-17.0) g/dL Hct 38.4 (38.0-50.0) % MCV 93.4 (80.0-98.0) fL MCH 32.1 H (27.0-32.0) pg MCHC 34.4 (31.0-37.0) g/dL RDW Std Deviation 39.2 (28.0-62.0) fl RDW Coeff of Nayeli 12 (11.0-15.0) % Plt Count 214 (150-400) K/uL MPV 9.40 (7.40-12.00) fL Neut % (Auto) 66.1 (48.0-80.0) % Lymph % (Auto) 21.4 (16.0-40.0) % [place] % (Auto) 10.1 (0.0-15.0) % Eos % (Auto) 2.3 (0.0-7.0) % Baso % (Auto) 0.1 (0.0-1.5) % Neut # (Auto) 5.9 H (1.4-5.7) K/uL Lymph # (Auto) 1.9 (0.6-2.4) K/uL [place] # (Auto) 0.9 H (0.0-0.8) K/uL Eos # (Auto) 0.2 (0.0-0.7) K/uL Baso # (Auto) 0.0 (0.0-0.1) K/uL Nucleated RBC % 0.0 /100WBC Nucleated RBCs # 0 K/uL Sodium 139 (136-148) mmol/L Potassium 4.0 (3.5-5.1) mmol/L Chloride 106 (98-107) mmol/L Carbon Dioxide 25.5 (21.0-32.0) mmol/L BUN 12 (7.0-18.0) mg/dL Creatinine 0.8 (0.8-1.3) mg/dL Est Cr Clr Drug Dosing 129.27 mL/min Estimated GFR (MDRD) > 60.0 ml/min Glucose 107 H (74-106) mg/dL Calcium 8.4 L (8.5-10.1) mg/dL Med Orders - Current: Current Medications Hydromorphone HCl (Dilaudid) 1 mg IVPUSH Q3H PRN PRN Reason: Pain Last Admin: 04/29/19 21:50 Dose: 1 mg Levofloxacin/Dextrose 750 mg/ (Premix) 150 mls @ 100 mls/hr IV Q24H [facility] Last Admin: 04/30/19 04:28 Dose: 100 mls/hr Sodium Chloride (Normal Saline) 1,000 mls @ 125 mls/hr IV ASDIRECTED [facility] Last Admin: 04/30/19 10:00 Dose: 125 mls/hr Metronidazole 500 mg/ Premix 100 mls @ 100 mls/hr IV Q6HR [facility] Last Admin: 04/30/19 17:23 Dose: 100 mls/hr Ondansetron HCl (Zofran) 4 mg IVPUSH Q4H PRN PRN Reason: Nausea/Vomiting Last Admin: 04/30/19 06:02 Dose: 4 mg Discontinued Medications Hydromorphone HCl (Dilaudid) 1 mg IVPUSH ONETIME ONE Stop: 04/28/19 02:48 Last Admin: 04/28/19 02:55 Dose: 1 mg Sodium Chloride (Normal Saline) 1,000 mls @ 999 mls/hr IV STAT ONE Stop: 04/28/19 03:39 Last Admin: 04/28/19 02:48 Dose: 999 mls/hr Levofloxacin/Dextrose 750 mg/ (Premix) 150 mls @ 100 mls/hr IV ONETIME ONE Stop: 04/28/19 05:05 Last Admin: 04/28/19 04:55 Dose: 100 mls/hr Metronidazole 500 mg/ Premix 100 mls @ 100 mls/hr IV ONETIME ONE Stop: 04/28/19 04:35 Last Admin: 04/28/19 04:04 Dose: 100 mls/hr Metronidazole 500 mg/ Premix 100 mls @ 100 mls/hr IV Q6HR [facility] Last Admin: 04/28/19 14:38 Dose: Not Given Iopamidol (Isovue Multipack-370 (76%)) 100 ml IVPUSH ONETIME ONE Stop: 04/28/19 04:00 Last Admin: 04/28/19 03:59 Dose: 100 ml Ondansetron HCl (Zofran) 4 mg IVPUSH ONETIME ONE Stop: 04/28/19 02:48 Last Admin: 04/28/19 02:54 Dose: 4 mg - Exam General: Alert, Oriented, Cooperative Lungs: Clear to Auscultation, Normal Respiratory Effort Cardiovascular: Regular Rate, Regular Rhythm GI/Abdominal Exam: Normal Bowel Sounds, Soft, Tender (LLQ). No: Distended Extremities: Normal Range of Motion, Non-Tender, No Pedal Edema. No: Normal Inspection Neurological: No New Focal Deficit Psy/Mental Status: Alert, Normal Affect, Normal Mood - Problem List & Annotations (1) Abdominal pain SNOMED Code(s): 70645119 Code(s): R10.9 - UNSPECIFIED ABDOMINAL PAIN Status: Acute Current Visit: Yes (2) Diverticulitis SNOMED Code(s): 226275665 Code(s): K57.92 - DVTRCLI OF INTEST, PART UNSP, W/O PERF OR ABSCESS W/O BLEED Status: Acute Current Visit: Yes - Problem List Review Problem List Initiated/Reviewed/Updated: Yes - My Orders Last 24 Hours: My Active Orders 04/30/19 11:40 Patient Status [ADT] Stat 05/01/19 05:11 BMP [BASIC METABOLIC PANEL,BMP] [CHEM] AM CBC WITH AUTO DIFF [HEME] AM 05/01/19 Breakfast NPO [Nothing Per Oral Diet] [DIET] - Plan Plan:: 39 yo male admitted with acute diverticulitis. 1. Acute Diverticulitis: Slow improvement, still having pain and some nausea this morning. Continue IV fluids, Levaquin and Flagyl. Change diet to NPO. VTE prophylaxis: SCDs Dispo: will change to inpatient today, expected 1-3 more days pending improvement.
[2019-05-01] MEDS: metroNIDAZOLE/Normal Saline 500 MG in Premix Bag 1 BAG IV SCH ×5 (01:01→23:18)
[2019-05-01] MEDS: Levofloxacin/Dextrose 5%-Water 750 MG in Premix Bag 1 BAG IV SCH (04:10)
[2019-05-01 06:56] LABS: CHLORIDE,CL 106 mmol/L (98-107); SODIUM,NA 138 mmol/L (136-148)
[2019-05-01] MEDS: Sodium Chloride 0.9% 1,000 ML IV SCH ×2 (07:34→15:55)
--- NOTE | 2019-05-01 10:50 | PCM.PN ---
- General Info Date of Service: 05/01/19 Admission Dx/Problem (Free Text): Admission Diagnosis/Problem Admission Diagnosis/Problem Diverticulitis Subjective Update: Feeling better this morning. Pain is much improved. No further nausea. Nervous to go home. Functional Status: Reports: Pain Controlled, Ambulating, Urinating - Review of Systems Pulmonary: Reports: No Symptoms. Denies: Shortness of Breath Cardiovascular: Reports: No Symptoms. Denies: Chest Pain Gastrointestinal: Reports: No Symptoms. Denies: Abdominal Pain, Nausea, Vomiting Genitourinary: Reports: No Symptoms. Denies: Dysuria, Frequency, Burning Musculoskeletal: Reports: No Symptoms Skin: Reports: No Symptoms Neurological: Reports: No Symptoms Psychiatric: Reports: No Symptoms - Patient Data Vitals - Most Recent: Last Vital Signs Temp 98.0 F 05/01/19 08:00 Pulse 54 L 05/01/19 08:00 Resp 15 05/01/19 08:00 BP 116/69 05/01/19 08:00 Pulse Ox 95 05/01/19 08:00 Weight - Most Recent: 128.055 kg I&O - Last 24 Hours: Intake & Output 04/30/19 05/01/19 05/01/19 22:59 06:59 14:59 Intake Total 1119 1579 Output Total 2250 300 Balance -1131 1279 Lab Results Last 24 Hours: Laboratory Results - last 24 hr 05/01/19 05/01/19 Range/Units 06:00 06:00 WBC 7.90 (4.0-11.0) K/uL RBC 4.15 L (4.50-5.90) M/uL Hgb 13.5 (13.0-17.0) g/dL Hct 38.5 (38.0-50.0) % MCV 92.8 (80.0-98.0) fL MCH 32.5 H (27.0-32.0) pg MCHC 35.1 (31.0-37.0) g/dL RDW Std Deviation 39.3 (28.0-62.0) fl RDW Coeff of Nayeli 12 (11.0-15.0) % Plt Count 210 (150-400) K/uL MPV 10.20 (7.40-12.00) fL Neut % (Auto) 59.0 (48.0-80.0) % Lymph % (Auto) 26.5 (16.0-40.0) % [place] % (Auto) 10.5 (0.0-15.0) % Eos % (Auto) 3.7 (0.0-7.0) % Baso % (Auto) 0.3 (0.0-1.5) % Neut # (Auto) 4.7 (1.4-5.7) K/uL Lymph # (Auto) 2.1 (0.6-2.4) K/uL [place] # (Auto) 0.8 (0.0-0.8) K/uL Eos # (Auto) 0.3 (0.0-0.7) K/uL Baso # (Auto) 0.0 (0.0-0.1) K/uL Nucleated RBC % 0.0 /100WBC Nucleated RBCs # 0 K/uL Sodium 138 (136-148) mmol/L Potassium 4.0 (3.5-5.1) mmol/L Chloride 106 (98-107) mmol/L Carbon Dioxide 24.9 (21.0-32.0) mmol/L BUN 10 (7.0-18.0) mg/dL Creatinine 0.8 (0.8-1.3) mg/dL Est Cr Clr Drug Dosing 129.27 mL/min Estimated GFR (MDRD) > 60.0 ml/min Glucose 98 (74-106) mg/dL Calcium 8.5 (8.5-10.1) mg/dL Med Orders - Current: Current Medications Hydromorphone HCl (Dilaudid) 1 mg IVPUSH Q3H PRN PRN Reason: Pain Last Admin: 04/29/19 21:50 Dose: 1 mg Levofloxacin/Dextrose 750 mg/ (Premix) 150 mls @ 100 mls/hr IV Q24H [facility] Last Admin: 05/01/19 04:10 Dose: 100 mls/hr Sodium Chloride (Normal Saline) 1,000 mls @ 125 mls/hr IV ASDIRECTED [facility] Last Admin: 05/01/19 07:34 Dose: 125 mls/hr Metronidazole 500 mg/ Premix 100 mls @ 100 mls/hr IV Q6HR [facility] Last Admin: 05/01/19 06:08 Dose: 100 mls/hr Ondansetron HCl (Zofran) 4 mg IVPUSH Q4H PRN PRN Reason: Nausea/Vomiting Last Admin: 04/30/19 06:02 Dose: 4 mg Discontinued Medications Hydromorphone HCl (Dilaudid) 1 mg IVPUSH ONETIME ONE Stop: 04/28/19 02:48 Last Admin: 04/28/19 02:55 Dose: 1 mg Sodium Chloride (Normal Saline) 1,000 mls @ 999 mls/hr IV STAT ONE Stop: 04/28/19 03:39 Last Admin: 04/28/19 02:48 Dose: 999 mls/hr Levofloxacin/Dextrose 750 mg/ (Premix) 150 mls @ 100 mls/hr IV ONETIME ONE Stop: 04/28/19 05:05 Last Admin: 04/28/19 04:55 Dose: 100 mls/hr Metronidazole 500 mg/ Premix 100 mls @ 100 mls/hr IV ONETIME ONE Stop: 04/28/19 04:35 Last Admin: 04/28/19 04:04 Dose: 100 mls/hr Metronidazole 500 mg/ Premix 100 mls @ 100 mls/hr IV Q6HR [facility] Last Admin: 04/28/19 14:38 Dose: Not Given Iopamidol (Isovue Multipack-370 (76%)) 100 ml IVPUSH ONETIME ONE Stop: 04/28/19 04:00 Last Admin: 04/28/19 03:59 Dose: 100 ml Ondansetron HCl (Zofran) 4 mg IVPUSH ONETIME ONE Stop: 04/28/19 02:48 Last Admin: 04/28/19 02:54 Dose: 4 mg - Exam General: Alert, Oriented, Cooperative, No Acute Distress Lungs: Clear to Auscultation, Normal Respiratory Effort Cardiovascular: Regular Rate, Regular Rhythm GI/Abdominal Exam: Normal Bowel Sounds, Soft, Non-Tender, No Organomegaly Back Exam: Normal Inspection, Full Range of Motion Extremities: Normal Inspection, Normal Range of Motion, Non-Tender, No Pedal Edema Neurological: No New Focal Deficit Psy/Mental Status: Alert, Normal Affect, Normal Mood - Problem List & Annotations (1) Abdominal pain SNOMED Code(s): 58823433 Code(s): R10.9 - UNSPECIFIED ABDOMINAL PAIN Status: Acute Current Visit: Yes (2) Diverticulitis SNOMED Code(s): 215785487 Code(s): K57.92 - DVTRCLI OF INTEST, PART UNSP, W/O PERF OR ABSCESS W/O BLEED Status: Acute Current Visit: Yes - Problem List Review Problem List Initiated/Reviewed/Updated: Yes - My Orders Last 24 Hours: My Active Orders 04/30/19 11:40 Patient Status [ADT] Stat 05/01/19 Breakfast Clear Liquid Diet [DIET] - Plan Plan:: 39 yo male admitted with acute diverticulitis. 1. Acute Diverticulitis: Pain improved, no nausea. Will advance diet today and monitor Continue IV fluids, Levaquin and Flagyl. VTE prophylaxis: SCDs Dispo: Likely discharge home in am if tolerating diet.
[2019-05-02] MEDS: Sodium Chloride 0.9% 1,000 ML IV SCH (03:02)
[2019-05-02] MEDS: Levofloxacin/Dextrose 5%-Water 750 MG in Premix Bag 1 BAG IV SCH (04:25)
[2019-05-02 05:57] LABS: CHLORIDE,CL 106 mmol/L (98-107); SODIUM,NA 140 mmol/L (136-148)
[2019-05-02] MEDS: metroNIDAZOLE/Normal Saline 500 MG in Premix Bag 1 BAG IV SCH (06:06)
--- NOTE | 2019-05-02 09:06 | PCM.DCSUM1 ---
Discharge Summary - Hospital Course Brief History: 39 yo male with pmh of diverticulitis who presents with one day history of sharp left lower quadrant pain. He denies any diarrhea, blood in stool, fevers, nausea or vomiting. CT scan of abdomen was suggestive of diverticulitis. WBC was 12,240. He was admitted last month for diverticulitis. He was scedulated for a colonoscopy on May [address] Enriquez. Diagnosis: Stroke: No - Discharge Data Discharge Date: 05/02/19 Discharge Disposition: Home, Self-Care 01 Condition: Good - Discharge Diagnosis/Problem(s) (1) Abdominal pain SNOMED Code(s): 67128657 ICD Code: R10.9 - UNSPECIFIED ABDOMINAL PAIN Status: Acute (2) Diverticulitis SNOMED Code(s): 126610919 ICD Code: K57.92 - DVTRCLI OF INTEST, PART UNSP, W/O PERF OR ABSCESS W/O BLEED Status: Acute - Patient Instructions Diet: GI Soft/Low Residue/Low Fiber Activity: As Tolerated Driving: Do Not Drive Showering/Bathing: May Shower Notify Provider of: Fever, Increased Pain, Swelling and Redness, Drainage, Nausea and/or Vomiting Other/Special Instructions: Colonoscopy is canceled on . You will see Dr Enriquez in 2-3 weeks then he will reschedule the colonoscopy with you then. - Discharge Plan *PRESCRIPTION DRUG MONITORING PROGRAM REVIEWED*: Not Applicable *COPY OF PRESCRIPTION DRUG MONITORING REPORT IN PATIENT HEMALTAHA: Not Applicable Prescriptions/Med Rec: levoFLOXacin [Levaquin] 750 mg PO DAILY #9 tab metroNIDAZOLE [Flagyl] 500 mg PO Q8H #27 tab Home Medications: Home Meds levoFLOXacin [Levaquin] 750 mg PO DAILY #9 tab 05/02/19 [Rx] metroNIDAZOLE [Flagyl] 500 mg PO Q8H #27 tab 05/02/19 [Rx] Oxygen Therapy Mode: Room Air Patient Handouts: Diverticulitis, [id number], Levofloxacin tablets, Metronidazole tablets or capsules Referrals: Angie Boo DO [Resident] - 05/09/19 2:30 pm Glynn Enriquez MD [Physician] - 05/11/19 9:15 am - Discharge Summary/Plan Comment DC Time >30 min.: No Discharge Summary/Plan Comment: Admitting Diagnoses: Diverticulitis Discharge Diagnoses: Diverticulitis [place] was admitted and treated with Levaquin and Flagyl for diverticulitis along with bowel rest. He was feeling better and CL started. he then had further nausea and pain. he was transitioned back to NPO x 24 hours and he then started to improve. He has tolerated CL and FL well and is ready for discharge home today. He is feeling good and has no pain or nausea. I spoke with Dr Enriquez regarding colonoscopy on May 11. He said to cancel this and have him follow up as outpatient in 2-3 weeks then he we reschedule colonoscopy in at least 6 weeks. He will be sent home with 9 more days of Flagyl and Levaquin. He is to return to ED or clinic if concerns should arise. - General Info Date of Service: 05/02/19 Admission Dx/Problem (Free Text: Admission Diagnosis/Problem Admission Diagnosis/Problem Diverticulitis Subjective Update: Feeling good this morning. No nausea or pain. Ready for discharge home. Functional Status: Reports: Pain Controlled, Tolerating Diet, Ambulating, Urinating - Review of Systems General: Reports: No Symptoms. Denies: Fever, Weakness, Fatigue HEENT: Reports: No Symptoms Pulmonary: Reports: No Symptoms. Denies: Shortness of Breath Cardiovascular: Reports: No Symptoms. Denies: Chest Pain Gastrointestinal: Reports: No Symptoms. Denies: Abdominal Pain, Nausea, Vomiting Genitourinary: Reports: No Symptoms Musculoskeletal: Reports: No Symptoms Skin: Reports: No Symptoms Neurological: Reports: No Symptoms Psychiatric: Reports: No Symptoms - Patient Data Vitals - Most Recent: Last Vital Signs Temp 97.7 F 05/02/19 08:00 Pulse 57 L 05/02/19 08:00 Resp 14 05/02/19 08:00 BP 122/77 05/02/19 08:00 Pulse Ox 94 L 05/02/19 08:00 Weight - Most Recent: 128.055 kg I&O - Last 24 hours: Intake & Output 05/01/19 05/02/19 05/02/19 22:59 06:59 14:59 Intake Total 1776 2277 Output Total 750 0 Balance 1026 2277 Lab Results - Last 24 hrs: Laboratory Results - last 24 hr 05/02/19 05/02/19 Range/Units 05:18 05:18 WBC 8.04 (4.0-11.0) K/uL RBC 4.51 (4.50-5.90) M/uL Hgb 14.4 (13.0-17.0) g/dL Hct 41.5 (38.0-50.0) % MCV 92.0 (80.0-98.0) fL MCH 31.9 (27.0-32.0) pg MCHC 34.7 (31.0-37.0) g/dL RDW Std Deviation 39.4 (28.0-62.0) fl RDW Coeff of Nayeli 12 (11.0-15.0) % Plt Count 268 (150-400) K/uL MPV 9.60 (7.40-12.00) fL Neut % (Auto) 59.9 (48.0-80.0) % Lymph % (Auto) 26.9 (16.0-40.0) % [place] % (Auto) 9.1 (0.0-15.0) % Eos % (Auto) 3.6 (0.0-7.0) % Baso % (Auto) 0.5 (0.0-1.5) % Neut # (Auto) 4.8 (1.4-5.7) K/uL Lymph # (Auto) 2.2 (0.6-2.4) K/uL [place] # (Auto) 0.7 (0.0-0.8) K/uL Eos # (Auto) 0.3 (0.0-0.7) K/uL Baso # (Auto) 0.0 (0.0-0.1) K/uL Nucleated RBC % 0.0 /100WBC Nucleated RBCs # 0 K/uL Sodium 140 (136-148) mmol/L Potassium 3.8 (3.5-5.1) mmol/L Chloride 106 (98-107) mmol/L Carbon Dioxide 27.7 (21.0-32.0) mmol/L BUN 8 (7.0-18.0) mg/dL Creatinine 0.8 (0.8-1.3) mg/dL Est Cr Clr Drug Dosing 129.27 mL/min Estimated GFR (MDRD) > 60.0 ml/min Glucose 108 H (74-106) mg/dL Calcium 8.7 (8.5-10.1) mg/dL Med Orders - Current: Current Medications Levofloxacin/Dextrose 750 mg/ (Premix) 150 mls @ 100 mls/hr IV Q24H [facility] Last Admin: 05/02/19 04:25 Dose: 100 mls/hr Sodium Chloride (Normal Saline) 1,000 mls @ 125 mls/hr IV ASDIRECTED [facility] Last Admin: 05/02/19 03:02 Dose: 125 mls/hr Metronidazole 500 mg/ Premix 100 mls @ 100 mls/hr IV Q6HR [facility] Last Admin: 05/02/19 06:06 Dose: 100 mls/hr Ondansetron HCl (Zofran) 4 mg IVPUSH Q4H PRN PRN Reason: Nausea/Vomiting Last Admin: 04/30/19 06:02 Dose: 4 mg Discontinued Medications Hydromorphone HCl (Dilaudid) 1 mg IVPUSH ONETIME ONE Stop: 04/28/19 02:48 Last Admin: 04/28/19 02:55 Dose: 1 mg Hydromorphone HCl (Dilaudid) 1 mg IVPUSH Q3H PRN PRN Reason: Pain Last Admin: 04/29/19 21:50 Dose: 1 mg Sodium Chloride (Normal Saline) 1,000 mls @ 999 mls/hr IV STAT ONE Stop: 04/28/19 03:39 Last Admin: 04/28/19 02:48 Dose: 999 mls/hr Levofloxacin/Dextrose 750 mg/ (Premix) 150 mls @ 100 mls/hr IV ONETIME ONE Stop: 04/28/19 05:05 Last Admin: 04/28/19 04:55 Dose: 100 mls/hr Metronidazole 500 mg/ Premix 100 mls @ 100 mls/hr IV ONETIME ONE Stop: 04/28/19 04:35 Last Admin: 04/28/19 04:04 Dose: 100 mls/hr Metronidazole 500 mg/ Premix 100 mls @ 100 mls/hr IV Q6HR [facility] Last Admin: 04/28/19 14:38 Dose: Not Given Iopamidol (Isovue Multipack-370 (76%)) 100 ml IVPUSH ONETIME ONE Stop: 04/28/19 04:00 Last Admin: 04/28/19 03:59 Dose: 100 ml Ondansetron HCl (Zofran) 4 mg IVPUSH ONETIME ONE Stop: 04/28/19 02:48 Last Admin: 04/28/19 02:54 Dose: 4 mg - Exam General: Reports: Alert, Oriented, Cooperative, No Acute Distress Lungs: Reports: Clear to Auscultation, Normal Respiratory Effort Cardiovascular: Reports: Regular Rate, Regular Rhythm GI/Abdominal Exam: Normal Bowel Sounds, Soft, Non-Tender, No Organomegaly, No Distention Back Exam: Reports: Normal Inspection, Full Range of Motion Neurological: Reports: No New Focal Deficit Psy/Mental Status: Reports: Alert, Normal Affect, Normal Mood
== END 2019-05-02 10:20 | disposition home or self-care (01) | DRG 244 ==
LOC: MW.ED 02:34 → INTOOBSV 04:53 → UNDOADMOB 04:53 → MW.MS 04:53 → OBSVTOIN 04:53 → INTOOBSV 11:40 → OBSVTOIN 11:40 → MW.MS 04-30 11:40 → UNDODISIN 05-02 10:20
PROVIDERS: ADMIT Internal Medicine; ATTEND Internal Medicine
DX: K57.32 Diverticulitis of large intestine without perforation or abscess without bleeding (principal); Z79.899 Other long term (current) drug therapy; F17.210 Nicotine dependence, cigarettes, uncomplicated
CPT/HCPCS: 36415; 74177; 74177-26; 80048; 80053; 81003; 83690; 85025; 96361; 96365; 96366; 96367; 96375; 96376; 99284; 99285-25; A4217; G0378; J1170; J1956; J2405; J3490; J7040; Q9967